=== PATIENT | male | born 1960 | race Caucasian/White ===

== ENCOUNTER 2017-07-05 23:27 | Inpatient (IN) | payer BC ==
[~2017-07-05] VITALS: Ht 170.2 cm; Wt 123.0 kg
[2017-07-05 23:28] VITALS: BP 155/103; PULSE 94; RESP 18; TEMP 97.8; O2SAT 95
[2017-07-06] VITALS (23 sets, daily range): BP systolic 95–143; BP diastolic 48–96; PULSE 69–97; RESP 16–18; TEMP 97.3–99.4; O2SAT 94–100
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
[2017-07-06] MEDS ORDERED: ASPIRIN 81 MG CHEW TAB CHEW ONE (00:15)
[2017-07-06 00:16] LABS: AUTOMATED NEUTROPHIL # 4.7 TH/MM3 (1.8-7.7); BASOPHIL # 0.1 TH/MM3 (0-0.2); BASOPHIL % 0.8 % (0.0-2.0); EOSINOPHIL # 0.3 TH/MM3 (0-0.4); EOSINOPHIL % 3.1 % (0.0-4.0); HEMATOCRIT 47.4 % (39.0-51.0); HEMO FLAGS DIFF FINAL; LYMPH % 34.7 % (9.0-44.0); LYMPHOCYTE # 3.1 TH/MM3 (1.0-4.8); MEAN CELL VOLUME 95.9 FL (80.0-100.0); MEAN CORPUSCULAR HEMOGLOBIN 32.8 PG (27.0-34.0); MEAN CORPUSCULAR HGB CONC 34.2 % (32.0-36.0); MONO % 8.9 % (0.0-8.0); NEUT % 52.5 % (16.0-70.0); PLATELET COUNT 294 TH/MM3 (150-450); RED BLOOD COUNT 4.95 MIL/MM3 (4.50-5.90); WHITE BLOOD COUNT 8.9 TH/MM3 (4.0-11.0)
--- NOTE | 2017-07-06 00:25 | RADRPT ---
EXAM DATE/TIME: 07/06/2017 00:10 [facility] COMPARISON: No previous studies available for comparison. INDICATIONS : Chest pain and short of breath. MEDICAL HISTORY : None. SURGICAL HISTORY : Stent placement. ENCOUNTER: Initial ACUITY: 1 day PAIN SCORE: 4/10 LOCATION: Bilateral chest FINDINGS: A single view of the chest demonstrates the lungs to be symmetrically aerated without evidence of mas s, infiltrate or effusion. Mild pulmonary vascular prominence. Surgical clips overlie the left chest The cardiomediastinal contours are unremarkable. Osseous structures are intact. CONCLUSION: Mild pulmonary vascular congestion. Surgical clips overlie left chest. Some bony hypertrophy of the r ight AC joint. Alan Meléndez MD on July 06, 2017 at 0:23 Board Certified Radiologist. This report was verified electronically.
[2017-07-06 00:30] LABS: APTT (PATIENT) 28.7 SEC (24.3-30.1); PROTHROMBIN TIME - PATIENT 11.3 SEC (9.8-11.6)
[2017-07-06 01:01] LABS: ANION GAP 9 MEQ/L (5-15); BICARBONATE 24.8 MEQ/L (21.0-32.0); BLOOD UREA NITROGEN 13 MG/DL (7-18); CHLORIDE 103 MEQ/L (98-107); CREATINE KINASE 143 U/L (39-308); GLOMERULAR FILTRATION RATE 99 ML/MIN (>89); MAGNESIUM 1.9 MG/DL (1.5-2.5); POTASSIUM 4.1 MEQ/L (3.5-5.1); SODIUM (NA) 137 MEQ/L (136-145)
[2017-07-06 01:14] LABS: CKMB 2.7 NG/ML (0.5-3.6)
[2017-07-06] MEDS ORDERED: HEPARIN SODIUM - IV 10,000 UNITS/10 ML VIAL IV ONE (01:45)
[2017-07-06] MEDS ORDERED: HEPARIN-D5W 25,000 U/250 ML 250 ML IV PRN ×2 (01:45→08:00)
[2017-07-06] MEDS ORDERED: NITROGLYCERIN 2% OINT 1 GM PACKET TOPICAL ONE (02:00)
[2017-07-06] MEDS ORDERED: MORPHINE SULFATE 4 MG/ML INJ IV PUSH PRN (02:15)
[2017-07-06] MEDS ORDERED: ACETAMINOPHEN 500 MG CPLT PO PRN (02:15)
[2017-07-06] MEDS ORDERED: SODIUM CHLORIDE 0.9% FLUSH 10 ML FLUSH IV FLUSH PRN (02:15)
[2017-07-06] MEDS ORDERED: FUROSEMIDE 20 MG/2 ML VIAL IV PUSH ONE (02:15)
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
[2017-07-06] MEDS ORDERED: GLUCAGON 1 MG/ML VIAL OTHER PRN (04:45)
[2017-07-06] MEDS ORDERED: DEXTROSE 50% IN WATER 50 ML VIAL(D50) IV PUSH PRN (04:45)
[2017-07-06 07:31] LABS: HDL CHOLESTEROL 51.6 MG/DL (40.0-60.0)
[2017-07-06] MEDS: INSULIN ASPART SUPPLEMENTAL SCALE SQ SCH ×4 (08:00→21:33)
[2017-07-06] MEDS: NITROGLYCERIN 2% OINT 1 GM PACKET TOP SCH ×3 (08:00→18:00)
[2017-07-06] MEDS: SODIUM CHLORIDE 0.9% FLUSH 10 ML FLUSH IV FLUSH SCH ×2 (09:00→21:32)
[2017-07-06 10:02] LABS: APTT (PATIENT) 29.1 SEC (24.3-30.1); HEMATOCRIT 44.2 % (39.0-51.0); MEAN CELL VOLUME 97.2 FL (80.0-100.0); MEAN CORPUSCULAR HEMOGLOBIN 33.6 PG (27.0-34.0); MEAN CORPUSCULAR HGB CONC 34.6 % (32.0-36.0); PLATELET COUNT 280 TH/MM3 (150-450); RED BLOOD COUNT 4.54 MIL/MM3 (4.50-5.90); RED CELL DISTRIBUTION WIDTH 12.9 % (11.6-17.2); REVIEW FLAG FINAL; WHITE BLOOD COUNT 8.7 TH/MM3 (4.0-11.0)
--- NOTE | 2017-07-06 10:58 | HHI.PR ---
Subjective Remarks Follow-up non-ST elevation NC 07/06/17-patient seen and examined and currently he is free of chest pain Objective Vitals Vital Signs Date Time Temp Pulse Resp B/P (MAP) Pulse Ox O2 Delivery O2 Flow Rate FiO2 07/06/17 09:00 77 07/06/17 08:00 74 07/06/17 07:00 98.4 74 16 136/85 (102) 97 07/06/17 07:00 72 07/06/17 06:00 74 07/06/17 05:00 73 07/06/17 04:00 73 07/06/17 03:46 07/06/17 03:40 98.6 71 18 139/96 (110) 96 07/06/17 03:40 71 07/06/17 02:19 71 18 143/93 (110) 97 Nasal Cannula 2.00 07/06/17 02:14 73 18 143/93 (110) 100 Nasal Cannula 2.00 07/06/17 00:23 98 Nasal Cannula 2.00 07/06/17 00:23 97 Nasal Cannula 2.00 07/06/17 00:23 25 100 Nasal Cannula 2.00 07/05/17 23:28 97.8 94 18 155/103 (120) 95 Room Air I/O 07/05/17 07/05/17 07/05/17 07/06/17 07/06/17 07/06/17 07:00 15:00 23:00 07:00 15:00 23:00 Intake Total 40 ml Output Total 400 ml Balance -360 ml Intake Oral 0 ml IV Total 40 ml Output Urine Total 400 ml # Bowel Movements 0 Result Diagram: 07/06/17 0940 07/06/17 0008 Imaging Last Impressions Chest X-Ray 07/05/17 3414 Signed Impressions: Service Date/Time: Thursday, July 06, 2017 00:10 - CONCLUSION: Mild pulmonary vascular congestion. Surgical clips overlie left chest. Some bony hypertrophy of the right AC joint. Alan Meléndez MD Objective Remarks GENERAL: NAD SKIN: Warm and dry. HEAD: Normocephalic. EYES: No scleral icterus. No injection or drainage. NECK: Supple, trachea midline. No JVD or lymphadenopathy. CARDIOVASCULAR: Regular rate and rhythm without murmurs, gallops, or rubs. RESPIRATORY: Breath sounds equal bilaterally. No accessory muscle use. GASTROINTESTINAL: Abdomen soft, non-tender, nondistended. MUSCULOSKELETAL: No cyanosis, or edema. BACK: Nontender without obvious deformity. No CVA tenderness. A/P Problem List: (1) Non-ST elevation myocardial infarction (NSTEMI) ICD Code: I21.4 - Non-ST elevation (NSTEMI) myocardial infarction Status: Acute (2) Hypertension ICD Code: I10 - Essential (primary) hypertension Status: Acute (3) Diabetes mellitus ICD Code: E11.9 - Type 2 diabetes mellitus without complications Status: Acute (4) Tobacco use ICD Code: Z72.0 - Tobacco use Status: Acute Assessment and Plan 57-year-old man with 1. NSTEMI Continue with ACS rule out including serial troponin/EKG Currently on Heparin drip, Nitropaste, beta christiane, statin, aspirin Cardiology consulted for possible evaluation for left heart catheterization 2. Shortness of breath Likely secondary to NSTEMI Chest x-ray significant for mild pulmonary vascular congestion Status post IV Lasix 1 Supplemental oxygen 3. Diabetes mellitus Not currently on any medication A1c pending Continue with SSI 4. Hypertension Start Coreg twice a day 5. Hyperlipidemia LDL 111 Start Lipitor at bedtime Aamir Bentley MD Jul 06, 2017 10:58
--- NOTE | 2017-07-06 14:05 | EKG ---
Date Performed: 07/06/2017 Time Performed: 05:53:16 PTAGE: 57 years EKG: Sinus rhythm Lateral T wave changes may be due to myocardial ischemia Abnormal ECG PREVIOUS TRACING : 07/06/2017 00.17 Compared to prior tracing no significant change DOCTOR: Dayne Chapa Interpretating Date/Time 07/06/2017 14:01:55
--- NOTE | 2017-07-06 14:10 | EKG ---
Date Performed: 07/06/2017 Time Performed: 00:17:13 PTAGE: 57 years EKG: Sinus rhythm SEPTAL MYOCARDIAL INFARCTION ABNORMAL ECG NO PREVIOUS TRACING DOCTOR: Dayne Chapa Interpretating Date/Time 07/06/2017 14:05:19
[2017-07-06] MEDS ORDERED: DIAZEPAM 10 MG TAB PO SCH (17:00)
[2017-07-06] MEDS: SODIUM CHLOR 0.9% 1000 ML INJ 1,000 ML IV SCH (17:00)
[2017-07-06] MEDS ORDERED: diphenhydrAMINE HCL 50 MG CAP PO SCH (17:00)
--- NOTE | 2017-07-06 17:29 | MB ---
cc: AI BIRD DATE OF CONSULTATION 07/06/17 REASON FOR CONSULTATION Unstable angina. HISTORY OF PRESENT ILLNESS The patient is a 57-year-old white male with a history of hypertension, hyperlipidemia, diabetes, coronary artery disease status post myocardial infarction and coronary stent placement 2010 in [place] who presented to the hospital with chest pain. On the day of admission, while doing minimal to mild exertion, he developed severe substernal chest discomfort described as "pressure" associated with severe shortness of breath. The episode lasted about 30 minutes but recurred a short time later, again associated with severe shortness of breath. He finally decided to go to the emergency room for further evaluation and treatment. The second episode of chest discomfort also lasted about 30-40 minutes. He denies pleurisy, dizziness, syncope, near-syncope, palpitations, pedal edema, paroxysmal nocturnal dyspnea. PAST MEDICAL HISTORY As above. No other details currently available. PAST SURGICAL HISTORY 1. Appendectomy 2. Benign tumor removed from the shoulder. MEDICATIONS At home none. Here in hospital 1. Aspirin 325 mg p.o. daily. 2. Carvedilol 3.125 mg p.o. b.i.d. 3. Atorvastatin 10 mg p.o. q.h.s. 4. Nitro paste 1 inch q.6 h. 5. Heparin drip. ALLERGIES NO KNOWN DRUG ALLERGIES. FAMILY HISTORY Noncontributory. There is no significant family history of early myocardial infarction. SOCIAL HISTORY The patient smokes about a pack of cigarettes per day. He denies drug or alcohol abuse. REVIEW OF SYSTEMS As in the history of present illness, otherwise, negative or noncontributory. He also denies headache, visual changes, numbness, abdominal pain, melena, dyspepsia, bright red blood per rectum. PHYSICAL EXAMINATION VITAL SIGNS: Blood pressure 132/74 with a pulse of 97, respirations 16. GENERAL: He is a well-developed, well-nourished white male in no acute distress HEENT: Jugular venous pressure is very hard to assess. Carotid pulses are 2+ bilaterally and without bruits. CHEST: Examination of the chest reveals clear lung medina. CARDIAC: He has a regular rhythm and rate without S3-S4 or murmur. ABDOMEN: He has a soft, obese, nontender abdomen. Bowel sounds are present. There is no definite hepatosplenomegaly. EXTREMITIES: No clubbing, cyanosis or edema. Peripheral pulses are normal throughout. LABORATORY DATA Normal CBC. Normal basic metabolic profile except for glucose 187. Troponin 0.39, CK 143, total cholesterol 209, LDL 111, HDL 52, triglycerides 233. IMAGING STUDIES Chest x-ray shows mild pulmonary vascular congestion. CARDIOLOGY STUDIES EKG shows sinus rhythm, septal infarct age undetermined. IMPRESSION Symptoms most suggestive of unstable angina in this 57-year-old white male with a history of known coronary artery disease status post myocardial infarction and coronary stenting several years ago, history of hypertension, diabetes, hyperlipidemia. His chest pain symptoms on the day of admission clearly are suggestive of angina in an unstable pattern, occurring with minimal exertion. Troponin levels are also slightly abnormal. EKGs overall show non-diagnostic lateral T-wave changes. He has been chest pain free since coming into hospital. Chest x-ray also suggests the possibility of slight to mild congestive heart failure. Echocardiogram is pending. RECOMMENDATIONS 1. Cardiac catheterization tomorrow. 2. Continue statin therapy. 3. Continue beta christiane therapy and add an SARA inhibitor. 4. Continue daily aspirin and heparin drip. MD DIRK Osullivan/ /5:02 PM /5:09 PM MTDD
[2017-07-06 17:48] LABS: HEMOGLOBIN A1a 1.3 %; HEMOGLOBIN A1b 1.2 %; HEMOGLOBIN Ao 80.3 %; HEMOGLOBIN F 1.5 %; HEMOGLOBIN LA1C 2.4 %; HEMOGLOBIN P3 4.2 %
[2017-07-06] MEDS: ENALAPRIL MALEATE 2.5 MG TAB PO SCH (21:33)
[2017-07-06] MEDS: CARVEDILOL 3.125 MG TAB PO SCH (21:33)
[2017-07-06] MEDS: ATORVASTATIN 10 MG TAB PO SCH (21:33)
[2017-07-07] VITALS (24 sets, daily range): BP systolic 116–137; BP diastolic 72–98; PULSE 63–92; RESP 18–20; TEMP 97.9–99.1; O2SAT 94–100
[2017-07-07 00:41] LABS: APTT (PATIENT) 29.2 SEC (24.3-30.1)
[2017-07-07] MEDS: SODIUM CHLOR 0.9% 1000 ML INJ 1,000 ML IV SCH (03:00)
[2017-07-07] MEDS: NITROGLYCERIN 2% OINT 1 GM PACKET TOP SCH ×3 (06:00→12:00)
[2017-07-07 06:23] LABS: AUTOMATED NEUTROPHIL # 4.8 TH/MM3 (1.8-7.7); BASOPHIL # 0.1 TH/MM3 (0-0.2); BASOPHIL % 0.7 % (0.0-2.0); EOSINOPHIL # 0.4 TH/MM3 (0-0.4); HEMATOCRIT 44.1 % (39.0-51.0); HEMO FLAGS DIFF FINAL; LYMPH % 36.1 % (9.0-44.0); LYMPHOCYTE # 3.4 TH/MM3 (1.0-4.8); MEAN CELL VOLUME 96.9 FL (80.0-100.0); MEAN CORPUSCULAR HEMOGLOBIN 33.1 PG (27.0-34.0); MEAN CORPUSCULAR HGB CONC 34.1 % (32.0-36.0); MONO % 8.7 % (0.0-8.0); NEUT % 50.5 % (16.0-70.0); PLATELET COUNT 277 TH/MM3 (150-450); RED BLOOD COUNT 4.55 MIL/MM3 (4.50-5.90); RED CELL DISTRIBUTION WIDTH 12.6 % (11.6-17.2); WHITE BLOOD COUNT 9.5 TH/MM3 (4.0-11.0)
[2017-07-07 06:29] LABS: APTT (PATIENT) 30.2 SEC (24.3-30.1)
[2017-07-07 06:50] LABS: BICARBONATE 28.9 MEQ/L (21.0-32.0)
[2017-07-07] MEDS: INSULIN ASPART SUPPLEMENTAL SCALE SQ SCH ×4 (08:00→21:00)
[2017-07-07] MEDS: ENALAPRIL MALEATE 2.5 MG TAB PO SCH ×2 (08:31→21:46)
[2017-07-07] MEDS: ASPIRIN 325 MG TAB PO SCH (08:31)
[2017-07-07] MEDS: SODIUM CHLORIDE 0.9% FLUSH 10 ML FLUSH IV FLUSH SCH ×2 (08:32→21:46)
[2017-07-07] MEDS: CARVEDILOL 3.125 MG TAB PO SCH ×2 (08:32→21:46)
--- NOTE | 2017-07-07 10:35 | HHI.PR ---
Subjective Remarks 57-year-old male with a past medical history significant for hypertension and type 2 diabetes mellitus who presents with increasing shortness of breath and chest tightness 1 day. The patient reports that he was having shortness of breath and chest pressure when he woke up this morning. His shortness of breath was relieved with lying down however when he woke up to take a shower to go to work, the pain and shortness of breath returned. He was previously stented in 2010 in [place], however has not been on any medications in quite some time. He carries a diagnosis of hypertension and diabetes however does not take any medications because he cannot afford these. He last saw PCP approximately 3 years ago. Troponin on admission was 0.39. EKG with no ST segment elevations or depressions. Chest x-ray significant for pulmonary vascular congestion. 07/06/17-patient seen and examined and currently he is free of chest pain 07-07 NO CHEST PAIN DW RN AND PT TO HAVE CARDIAC CATH LATER TODAY AM LABS Objective Vitals Vital Signs Date Time Temp Pulse Resp B/P (MAP) Pulse Ox O2 Delivery O2 Flow Rate FiO2 07/07/17 09:00 68 07/07/17 08:00 66 07/07/17 07:00 68 07/07/17 07:00 98.3 75 20 126/88 (101) 96 07/07/17 06:00 72 07/07/17 05:00 78 07/07/17 04:00 72 07/07/17 03:00 76 07/07/17 03:00 99.1 76 18 120/73 (89) 96 07/07/17 02:00 74 07/07/17 01:00 72 07/07/17 00:00 72 07/06/17 23:00 77 07/06/17 23:00 99.4 77 18 95/48 (64) 96 07/06/17 22:00 84 07/06/17 21:00 84 07/06/17 20:00 99.2 79 18 127/84 (98) 94 07/06/17 20:00 80 07/06/17 19:00 82 07/06/17 18:06 96 07/06/17 16:00 97 07/06/17 15:00 87 07/06/17 15:00 97.3 87 16 132/74 (93) 96 07/06/17 14:05 84 07/06/17 13:00 84 07/06/17 12:00 84 07/06/17 11:00 69 07/06/17 11:00 98.4 76 18 132/79 (96) 96 I/O 07/06/17 07/06/17 07/06/17 07/07/17 07/07/17 07/07/17 07:00 15:00 23:00 07:00 15:00 23:00 Intake Total 40 ml 682 ml 370 ml Output Total 400 ml 850 ml 1625 ml Balance -360 ml -168 ml -1255 ml Intake Oral 0 ml 640 ml 240 ml IV Total 40 ml 42 ml 130 ml Output Urine Total 400 ml 850 ml 1625 ml # Bowel Movements 0 0 1 Result Diagram: 07/07/1760407/07/17604 Other Results Laboratory Tests Test 07/06/17 00:08 07/06/17 06:03 07/06/17 09:40 07/06/17 13:30 White Blood Count 8.9 TH/MM3 8.7 TH/MM3 Red Blood Count 4.95 MIL/MM3 4.54 MIL/MM3 Hemoglobin 16.2 GM/DL 15.3 GM/DL Hematocrit 47.4 % 44.2 % Mean Corpuscular Volume 95.9 FL 97.2 FL Mean Corpuscular Hemoglobin 32.8 PG 33.6 PG Mean Corpuscular Hemoglobin Concent 34.2 % 34.6 % Red Cell Distribution Width 13.0 % 12.9 % Platelet Count 294 TH/MM3 280 TH/MM3 Mean Platelet Volume 7.3 FL 7.4 FL Neutrophils (%) (Auto) 52.5 % Lymphocytes (%) (Auto) 34.7 % Monocytes (%) (Auto) 8.9 % Eosinophils (%) (Auto) 3.1 % Basophils (%) (Auto) 0.8 % Neutrophils # (Auto) 4.7 TH/MM3 Lymphocytes # (Auto) 3.1 TH/MM3 Monocytes # (Auto) 0.8 TH/MM3 Eosinophils # (Auto) 0.3 TH/MM3 Basophils # (Auto) 0.1 TH/MM3 CBC Comment DIFF FINAL Differential Comment Prothrombin Time 11.3 SEC Prothromb Time International Ratio 1.0 RATIO Activated Partial Thromboplast Time 28.7 SEC 29.1 SEC Blood Urea Nitrogen 13 MG/DL Creatinine 0.81 MG/DL Random Glucose 187 MG/DL Calcium Level 8.2 MG/DL Magnesium Level 1.9 MG/DL Sodium Level 137 MEQ/L Potassium Level 4.1 MEQ/L Chloride Level 103 MEQ/L Carbon Dioxide Level 24.8 MEQ/L Anion Gap 9 MEQ/L Estimat Glomerular Filtration Rate 99 ML/MIN Total Creatine Kinase 143 U/L 103 U/L 87 U/L Creatine Kinase MB 2.7 NG/ML Troponin I 0.39 NG/ML 0.39 NG/ML 0.33 NG/ML B-Type Natriuretic Peptide 95 PG/ML Triglycerides Level 233 MG/DL Cholesterol Level 209 MG/DL LDL Cholesterol 111 MG/DL HDL Cholesterol 51.6 MG/DL Cholesterol/HDL Ratio 4.05 RATIO Hemoglobin A1c 8.8 % Test 07/06/17 15:37 07/06/17 23:48 07/07/17 06:05 Activated Partial Thromboplast Time 28.0 SEC 29.2 SEC 30.2 SEC White Blood Count 9.5 TH/MM3 Red Blood Count 4.55 MIL/MM3 Hemoglobin 15.1 GM/DL Hematocrit 44.1 % Mean Corpuscular Volume 96.9 FL Mean Corpuscular Hemoglobin 33.1 PG Mean Corpuscular Hemoglobin Concent 34.1 % Red Cell Distribution Width 12.6 % Platelet Count 277 TH/MM3 Mean Platelet Volume 7.3 FL Neutrophils (%) (Auto) 50.5 % Lymphocytes (%) (Auto) 36.1 % Monocytes (%) (Auto) 8.7 % Eosinophils (%) (Auto) 4.0 % Basophils (%) (Auto) 0.7 % Neutrophils # (Auto) 4.8 TH/MM3 Lymphocytes # (Auto) 3.4 TH/MM3 Monocytes # (Auto) 0.8 TH/MM3 Eosinophils # (Auto) 0.4 TH/MM3 Basophils # (Auto) 0.1 TH/MM3 CBC Comment DIFF FINAL Differential Comment Blood Urea Nitrogen 15 MG/DL Creatinine 0.96 MG/DL Random Glucose 193 MG/DL Calcium Level 8.3 MG/DL Sodium Level 136 MEQ/L Potassium Level 4.0 MEQ/L Chloride Level 102 MEQ/L Carbon Dioxide Level 28.9 MEQ/L Anion Gap 5 MEQ/L Estimat Glomerular Filtration Rate 81 ML/MIN Imaging Last Impressions Chest X-Ray 07/05/17 [id number] Signed Impressions: Service Date/Time: Thursday, July 06, 2017 00:10 - CONCLUSION: Mild pulmonary vascular congestion. Surgical clips overlie left chest. Some bony hypertrophy of the right AC joint. Alan Meléndez MD Objective Remarks GENERAL: Awake alert oriented 3 --talkative and cooperative SKIN: Warm and dry. HEAD: Atraumatic. Normocephalic. EYES: Pupils equal and round. No scleral icterus. No injection or drainage. Extraocular muscles intact ENT: No nasal bleeding or discharge. Mucous membranes pink and moist. Tongue is midline NECK: Trachea midline. No JVD. Neck is supple CARDIOVASCULAR: Regular rate and rhythm. S1-S2 no S3-S4 no heave or thrill or rub or gallop RESPIRATORY: No accessory muscle use. Clear to auscultation. Breath sounds equal bilaterally. GASTROINTESTINAL: Abdomen soft, non-tender, nondistended. Hepatic and splenic margins not palpable. Obese MUSCULOSKELETAL: Extremities without clubbing, cyanosis, or edema. No obvious deformities. NEUROLOGICAL: Awake and alert. No obvious cranial nerve deficits. Motor grossly within normal limits. Five out of 5 muscle strength in the arms and legs. Normal speech. PSYCHIATRIC: Appropriate mood and affect; insight and judgment normal. Medications and IVs Current Medications Aspirin (Aspirin Chew) 324 mg ONCE ONCE CHEW Last administered on 07/06/17 00:22; Start 07/06/17 at 00:15; Stop 07/06/17 at 00:17; Status DC Heparin Sodium (Porcine) (Heparin Inj) 4,000 units ONCE ONCE IV Last administered on 07/06/17 01:45; Start 07/06/17 at 01:45; Stop 07/06/17 at 01 :46; Status DC Heparin Sodium/ Dextrose 250 ml @ 10 mls/hr TITRATE PRN IV Coagulation Management Last administered on 07/06/17 02:12; Start 07/06/17 at 01:45; Stop 07/06/17 at 07:52; Status DC Nitroglycerin (Nitroglycerin 2% Oint) 1 inch ONCE ONCE TOPICAL Last administered on 07/06/17 02:32; Start 07/06/17 at 02:00; Stop 07/06/17 at 02 :01; Status DC Furosemide (Lasix Inj) 20 mg ONCE ONCE IV PUSH Last administered on 02:32; Start 07/06/17 at 02:15; Stop 07/06/17 at 02:16; Status DC Sodium Chloride (NS Flush) 2 ml BID IV FLUSH Last administered on 07/07/17 08 :32; Start 07/06/17 at 09:00 Sodium Chloride (NS Flush) 2 ml UNSCH PRN IV FLUSH FLUSH AFTER USING IV ACCESS ; Start 07/06/17 at 02:15 Aspirin (Aspirin) 325 mg DAILY PO Last administered on 07/07/17 08:31; Start 07/07/17 at 09:00 Nitroglycerin (Nitroglycerin 2% Oint) 1 inch Q6HR TOP ; Start 07/06/17 at 08:00 Acetaminophen (Tylenol) 500 mg Q4H PRN PO HEADACHE; Start 07/06/17 at 02:15 Morphine Sulfate (Morphine Inj) 2 mg Q3HR PRN IV PUSH PAIN SCALE 6 TO 10; Start 07/06/17 at 02:15 Dextrose (D50w (Vial) Inj) 50 ml UNSCH PRN IV PUSH HYPOGLYCEMIA-SEE COMMENTS; Start 07/06/17 at 04:45 Glucagon (Glucagon Inj) 1 mg UNSCH PRN OTHER HYPOGLYCEMIA-SEE COMMENTS; Start 07/06/17 at 04:45 Insulin Aspart (NovoLOG SUPPLEMENTAL SCALE) 1 ACHS SLIDING SCALE SQ Last administered on 07/06/17 21:33; Start 07/06/17 at 08:00 Heparin Sodium/ Dextrose 250 ml @ 10 mls/hr TITRATE PRN IV Coagulation Management Last administered on 07/07/17 03:58; Start 07/06/17 at 08:00 Carvedilol (Coreg) 3.125 mg Q12HR PO Last administered on 07/07/17 08:32; Start 07/06/17 at 21:00 Atorvastatin Calcium (Lipitor) 10 mg HS PO Last administered on 07/06/17 21: 33; Start 07/06/17 at 21:00 Enalapril Maleate (Vasotec) 2.5 mg BID PO Last administered on 07/07/17 08:31 ; Start 07/06/17 at 21:00 Sodium Chloride 1,000 ml @ 100 mls/hr Q10H IV ; Start 07/06/17 at 17:00; Stop 07/11/17 at 16:59 Diphenhydramine HCl (Benadryl) 50 mg METROLOGY SPECIALIST PO ; Start 07/06/17 at 17:00; Stop 07/10/17 at 16:59 Diazepam (Valium) 10 mg METROLOGY SPECIALIST PO ; Start 07/06/17 at 17:00; Stop 07/10/17 at 16:59 A/P Problem List: (1) Non-ST elevation myocardial infarction (NSTEMI) ICD Code: I21.4 - Non-ST elevation (NSTEMI) myocardial infarction Status: Acute (2) Hypertension ICD Code: I10 - Essential (primary) hypertension Status: Acute (3) Diabetes mellitus ICD Code: E11.9 - Type 2 diabetes mellitus without complications Status: Acute (4) Tobacco use ICD Code: Z72.0 - Tobacco use Status: Acute Assessment and Plan Continue with ACS rule out including serial troponin/EKG Currently on Heparin drip, Nitropaste, beta christiane, statin, aspirin Cardiology consulted for possible evaluation for left heart catheterization later today Currently chest pain-free 2. Shortness of breath Likely secondary to NSTEMI Chest x-ray significant for mild pulmonary vascular congestion Status post IV Lasix 1 Supplemental oxygen 3. Diabetes mellitus Not currently on any medication A1c pending Continue with SSI 4. Hypertension Start Coreg twice a day 5. Hyperlipidemia LDL 111 Start Lipitor at bedtime Malignant noncompliance since patient has not seen a physician in many years even though he has insurance Discharge Planning Cardiac catheterization later today further recommendations pending Porter Sewell DO Jul 07, 2017 10:35
[2017-07-07] MEDS ORDERED: HEPARIN-NS/PF INJ 500 ML ONE (14:47)
[2017-07-07] MEDS ORDERED: MIDAZOLAM HCL 2 MG/2 ML VIAL ONE (14:47)
[2017-07-07] MEDS ORDERED: VERAPAMIL HCL 5 MG/2 ML VIAL ONE (14:47)
[2017-07-07] MEDS ORDERED: HEPARIN SODIUM - IV 10,000 UNITS/10 ML VIAL ONE (14:48)
[2017-07-07] MEDS ORDERED: NITROGLYCERIN INJ 5 ML ONE (14:48)
--- NOTE | 2017-07-07 15:32 | CATHPROC ---
[facility] HIS Report Study Information Study Number Admission Scheduled Start Study Start [id number] Jul 06 2017 1:53AM 07/06/2017 Jul 07 2017 2:27PM [place] [facility] Cardiac Catheterization Admit Source Facility Department Other [facility] - [employer] [facility] Physician and Clinical Staff Initial Carter Whitt Bank Runner Kaleigh Rodriguez,RN Additional Carter Whitt Recorder Nae Gill,RT(R) Scrub UmairEmily marie,RT(R) (BS) Procedures Performed Procedure Location (Site) Vessel Name Angiogram LV LV Ventricle Coronary Angiograms LCA Left Coronary Coronary Angiograms RCA Right Coronary L Heart Cath Equipment Time Laborer [employer] Description Size Mfg Part Number Used/Scraped TRANSDUCER, TRUWAVE [id number] 14:51 WANG DONAHUE * Used W/STOCKCOCK *[id number] *[id number] *[id number] 14:51 MALLINCKRODT SYRINGE, ANGIOMAT 150ML 150ML *[id number] Used 2S MEDICAL CONCEPT DRAPE, RADIAL FEMORAL FULL 14:51 * [id number] *[id number] Used DEVELOPMENT BODY [id number] 14:51 [employer] PACK, CCL CUSTOM * Used *[id number] 14:51 [employer] SUPPORT, ARTERIAL ADULT 35872 *[id number] Used [id number] 14:51 [employer] PACER PEN, SKIN DUAL W/ RULER * Used *[id number] BAND, RADIAL COMPRESSION TR [id number] 15:[address] [employer] 29CM Used LARGE 29 *[id number] SHEATH, FR6 RADIAL PRELUDE 14:51 [employer] FR 6 [id number] Used EASE 11CM [id number] 14:51 [employer] WIRE, EXCHANGE 260CM 3MMJ 260CM Used *[id number] 14:51 [employer] MANIFOLD, 4 PORT * Used *[id number] 15:22 [employer] TUBING, HIGH PRESSURE 20" 20" Used *[id number] 14:51 [employer] OMNIPAQUE, 350 MG, 150ML 150ML [id number] Used 15:15 [employer] OMNIPAQUE, 350 MG, 50ML 50ML [id number] Used [id number] 14:51 [employer],WARM AIR CCL * Used *[id number] CATHETER, FR5 OPTITORQUE [id number] 15:08 TERQwbcg MEDICAL FR 5 Used RADIAL TIG 4.0 *[id number] History: Current Medications Medication Dosage/Unit Route Frequency Last Date/Time Taken VASOTEC LIPITOR Beta Harmony ASA History: Allergies Allergy Reaction NKDA History: Risk Factors Family History of Hypertension Previous [place] Previous Heart Failure Premature CAD Yes No No No Prior Valve Prior PCI Prior PCIDate Prior CABG Surgery No Yes 08/23/2010 No Cerebrovascular Peripheral Artery Chronic Lung On Dialysis Diabetes Diabetes Therapy Disease Disease Disease No No No No Yes Oral History: Stress Tests Stress or Imaging Studies Performed No History: Other Disease Selection Items CAD History: Other Current Smoker Method Packs a Day Years Used Pack Years Yes Cigarettes 1 43 43 Labs Hgb (g/dl) Hct (%) WBC (l/cumm) Platelets (thousands) 11.60-17.00 35.00-51.00 4.00-11.00 150.00-450.00 15.1 44.1 9.5 277 Glucose (mg/dl) BUN (mg/dl) Creatinine (mg/dl) BUN:Creatinine (1:x) 74.00-106.00 7.00-18.00 0.50-1.30 10.00-20.00 193 15 0.9 16.7 Na (meq/l) K (meq/l) 136.00-145.00 3.50-5.10 136 4 INR (PTT:PT) 0.90-1.10 1 CPK-MB (ng/ML) 0.50-3.60 Not Drawn Medication Medication Total Dose (Bolus/Oral) Medication Total Dosage/Unit 1% XYLOCAINE 20 mL RADIAL COCKTAIL 5 mL (Bolus) VERSED 2 mg Medications (Bolus/Oral) Medication Time Given Dosage/Unit Administered By Reason VERSED 07/07/2017 3:00:00 PM 2 mg Kaleigh Rodriguez 2 mg VERSED given in lab by Kaleigh Rodriguez, RN in Left Forearm via Peripheral IV. Ordered by Carter Mars. 1% XYLOCAINE 07/07/2017 3:00:11 PM 20 mL Carter Mars 20 mL 1% XYLOCAINE given in lab by Carter Mars in Right Radial via Subcutaneous. Ntg 200mcg Verapamil 2.5mg Heparin RADIAL COCKTAIL 07/07/2017 3:06:31 PM 5 mL (Bolus) Carter Mars 2500U 5 mL (Bolus) RADIAL COCKTAIL given in lab by Carter Mars in Right Radial via Radial. Using [Solution Name]. Reason: Ntg 200mcg Verapamil 2.5mg Heparin 2500U. Medication (Drip) Medication Time Given Dosage/Unit Concentration/Unit Diluent (ml) Solution IV Solutions 07/07/2017 2:51:40 PM 50 mL (IV) NaCl .9 IV Solutions given in lab by Kaleigh Rodriguez RN in Left Forearm via Peripheral IV. Pump/Drip Flow us ing NaCl .9. Ordered by Carter Mars. Initial Case Assessment Cardiovascular HR Rhythm NIBP Chest Pain 72 SR 127/96 0 Edema Present Skin color Skin None Normal Warm Circulatory - Right Pulses Dorsalis Pedis Femoral Radial 2 2 2 Scale (0,1,2,3,4,d) Scale (0,1,2,3,4,d) Neurological State Oriented to time-place- Alert Moves all extremities person Respiration - General Respiration Rate SpO2 (%) O2 (lpm) (B/min) 19 96 2 Final Case Assessment Cardiovascular HR Rhythm NIBP Chest Pain 75 SR 120/78 0 Edema Present Skin color Skin None Normal Warm Circulatory - Right Pulses Dorsalis Pedis Femoral Radial 2 2 2 Scale (0,1,2,3,4,d) Scale (0,1,2,3,4,d) Neurological State Oriented to time-place- Alert Moves all extremities person Respiration - General Respiration Rate SpO2 (%) O2 (lpm) (B/min) 19 96 2 Chronological Log Time Study Chronological Log 14:37:24 Patient arrived via Bed. 14:40:31 Patient Name, D.O.B, / Armband Verified By R.N. 14:40:34 Consent signed by the physician and the patient and verified by the [employer] staff. 14:40:36 Pre-op and post- op instructions given; patient acknowledges understanding of instructions. 14:50:43 Immediate Presedation assesment performed by physician. 14:50:49 Patient has been NPO for More than 6Hrs. 14:50:50 Skin Breakdown- none 14:51:00 A # 18 IV was noted in the Antecubital (right). Grade = 0 14:51:00 A # 18 IV was noted in the Forearm (left). Grade = 0 IV Solutions given in lab by Kaleigh Rodriguez, BRENDAN in Left Forearm via Peripheral IV. Pump/Drip F low using NaCl .9. 14:51:40 Ordered by Carter Mars. 14:52:07 Pressure channel 1 zeroed. 14:52:19 History and physical on the chart or being dictated. Assessment: Initial Case, HR=72 BPM, Rhythm=SR, LDGR=566/96 mmhg, Chest Pain=0, Edema=None, Col or=Normal, Skin = Warm 14:52:21 Right Pulses: [place] Ped=2, Femoral=2, Radial=2 Neurological: State=Alert, Ox3, AUGUST Respiration: Resp=19 B/min, SpO2=96 %, O2=2 lpm Vitals capture started with the following parameters, Patient=Adult, Interval=5 min, Initial Pr msrmxt=827 mmHg, 14:52:35 Deflation Rate=5 mmHg, Cuff placed on Left Arm 14:53:10 HR=71 bpm, OJVU=439/96 mmhg, SpO2=96.0 %, Resp=18 B/min, Pain=0, Daysi=10, Hopper=2 14:54:05 MD arrived. 14:58:07 HR=71 bpm, QAJE=167/95 mmhg, SpO2=96.0 %, Resp=16 B/min Time Out. Correct patient, correct procedure, correct physician, power injector loaded, or not loaded with contrast with 14:59:13 surgical team present. Time Out Concurred by MD and individual staff in procedure. 15:00:00 2 mg VERSED given in lab by Kaleigh Rodriguez, BRENDAN in Left Forearm via Peripheral IV. Ordered by Carter Mars. 15:00:08 Case Start 15:00:11 20 mL 1% XYLOCAINE given in lab by Carter Mars in Right Radial via Subcutaneous. 15:03:10 HR=75 bpm, GYDC=542/89 mmhg, SpO2=95.0 %, Resp=19 B/min 15:04:35 Access site was Right Radial Artery. A SHEATH, FR6 RADIAL PRELUDE EASE 11CM FR 6 was advanced into the Radial (right) using the Perc utaneous 15:04:50 technique. 5 mL (Bolus) RADIAL COCKTAIL given in lab by Carter Mars in Right Radial via Radial. Using [So lution Name]. Reason: 15:06:31 Ntg 200mcg Verapamil 2.5mg Heparin 2500U. 15:07:01 Reference ECG taken A CATHETER, FR5 OPTITORQUE RADIAL TIG 4.0 FR 5 was advanced over a wire. OMNIPAQUE, 350 MG, 150 ML 150ML 15:07:33 was used for injections. 15:08:11 HR=76 bpm, ZNZZ=028/80 mmhg, SpO2=92 %, Resp=21 B/min 15:08:37 The LCA was injected and visualized at various angles. OMNIPAQUE, 350 MG, 150ML 150ML used . Recorded Pressure: Ao, HR=76, Condition=Condition 1 15:08:57 (Aorta) Ao 115/85/99 15:11:16 The RCA was injected and visualized at various angles. OMNIPAQUE, 350 MG, 150ML 150ML used . After removing the current catheter a JL 3.5 INFINITI CATHETER FR 6 was advanced over a WIRE, E XCHANGE 260CM 15:12:27 3MMJ 260CM. 15:13:10 HR=83 bpm, JTCJ=093/77 mmhg, SpO2=91.0 %, Resp=18 B/min After removing the current catheter a PIGTAIL STR INFINITI CATHETER FR 6 was advanced over a WI RE, EXCHANGE 15:16:41 260CM 3MMJ 260CM. 15:18:09 HR=86 bpm, VHGT=300/85 mmhg, SpO2=95.0 %, Resp=17 B/min Recorded Pressure: LV, HR=78, Condition=Condition 1 15:18:22 (Left Ventricle) LV 119/23/35 15:20:30 The LV was injected at 12 cc/sec for a total of 42. OMNIPAQUE, 350 MG, 50ML 50ML used. Recorded Pressure: LV, Ao, HR=81, Condition=Condition 1 15:20:48 (Left Ventricle) LV 123/24/42, (Aorta) Ao 113/79/95 15:21:03 Catheter was removed 15:21:06 Case End Radial Compression Device Used. 10 mLs of air placed in BAND, RADIAL COMPRESSION TR LARGE 29 2 9CM. Affected 15:21:54 hand 96 % O2 saturation. 15:22:43 No case complications noted. 15:22:46 Cine recording checked. 15:22:47 Bedside Report will be given. 15:22:49 Contrast Scanned 15::52 A Left Heart Cath was performed. Assessment: Final Case, HR=75 BPM, Rhythm=SR, OWIC=796/78 mmhg, Chest Pain=0, Edema=None, [place] r=Normal, Skin = Warm 15:23:02 Right Pulses: Israel Ped=2, Femoral=2, Radial=2 Neurological: State=Alert, Ox3, AUGUST Respiration: Resp=19 B/min, SpO2=96 %, O2=2 lpm 15:23:10 HR=76 bpm, CYHT=127/78 mmhg, SpO2=96.0 %, Resp=18 B/min 15:26:52 Vitals capture stopped. 15:33:00 Patient moved to stretcher End Study - Contrast Media Used In Study Contrast Total Opened (mL) Total Used (mL) Total Wasted (mL) Omnipaque 115 115 0 End Study - Maximum Contrast Load Max Contrast Load (mL) 688.9 End Study - Radiation Exposure Fluoro Time (minutes) 3.7 End Study - Patient Disposition Complications Transferred To Interventional Outcome No Telemetry Bed No attempt made
--- NOTE | 2017-07-07 15:37 | PD.CARD.PN ---
Subjective Subjective Remarks Denies further CP. No dyspnea, dizziness, palpitations, PND. Objective Medications Item Value Date Time Aspirin 325 mg 07/07/17 0900 (Aspirin) DAILY/PO 07/07/17 0831 Carvedilol 3.125 mg 07/06/17 2100 (Coreg) Q12HR/PO 07/07/17 0832 Atorvastatin 10 mg 07/06/17 2100 Calcium HS/PO 07/06/17 213 (Lipitor) Enalapril Maleate 2.5 mg 07/06/17 2100 (Vasotec) BID/PO 07/07/17 0831 Nitroglycerin 1 inch 07/06/17 0800 (Nitroglycerin Q6HR/TOP 2% Oint) Heparin Sodium/ 250 ml @ 10 mls/hr 07/06/17 0800 Dextrose TITRATE PRN/IV 07/07/17 0358 Current Medications Medications (Trade) Dose Ordered Sig/Shelby Route Start Time Stop Time Status Last Admin (NS Flush) 2 ml BID IV FLUSH 07/06/17 09:00 07/07/17 08:32 (NS Flush) 2 ml UNSCH PRN IV FLUSH 07/06/17 02:15 (Aspirin) 325 mg DAILY PO 07/07/17 09:00 07/07/17 08:31 (Nitroglycerin 2% Oint) 1 inch Q6HR TOP 07/06/17 08:00 (Tylenol) 500 mg Q4H PRN PO 07/06/17 02:15 (Morphine Inj) 2 mg Q3HR PRN IV PUSH 07/06/17 02:15 (D50w (Vial) Inj) 50 ml UNSCH PRN IV PUSH 07/06/17 04:45 (Glucagon Inj) 1 mg UNSCH PRN OTHER 07/06/17 04:45 (NovoLOG SUPPLEMENTAL SCALE) 1 ACHS SLIDING SCALE SQ 07/06/17 08:00 07/06/17 21:33 Heparin Sodium/ Dextrose 250 ml @ 10 mls/hr TITRATE PRN IV 07/06/17 08:00 07/07/17 03:58 (Coreg) 3.125 mg Q12HR PO 07/06/17 21:00 07/07/17 08:32 (Lipitor) 10 mg HS PO 07/06/17 21:00 07/06/17 21:33 (Vasotec) 2.5 mg BID PO 07/06/17 21:00 07/07/17 08:31 Sodium Chloride 1,000 ml @ 100 mls/hr Q10H IV 07/06/17 17:00 07/11/17 16:59 (Benadryl) 50 mg JACQUARD [employer]ATOR PO 07/06/17 17:00 07/10/17 16:59 (Valium) 10 mg JACQUARD [employer] OPERATOR PO 07/06/17 17:00 07/10/17 16:59 Vital Signs / I&O Vital Signs Date Time Temp Pulse Resp B/P (MAP) Pulse Ox O2 Delivery O2 Flow Rate FiO2 07/07/17 12:00 63 07/07/17 11:00 97.9 75 20 127/79 (95) 94 07/07/17 11:00 68 07/07/17 10:00 70 07/07/17 09:00 68 07/07/17 08:00 66 07/07/17 07:00 68 07/07/17 07:00 98.3 75 20 126/88 (101) 96 07/07/17 06:00 72 07/07/17 05:00 78 07/07/17 04:00 72 07/07/17 03:00 76 07/07/17 03:00 99.1 76 18 120/73 (89) 96 07/07/17 02:00 74 07/07/17 01:00 72 07/07/17 00:00 72 07/06/17 23:00 77 07/06/17 23:00 99.4 77 18 95/48 (64) 96 07/06/17 22:00 84 07/06/17 21:00 84 07/06/17 20:00 99.2 79 18 127/84 (98) 94 07/06/17 20:00 80 07/06/17 19:00 82 07/06/17 18:06 96 07/06/17 16:00 97 I/O 07/06/17 07/06/17 07/06/17 07/07/17 07/07/17 07/07/17 07:00 15:00 23:00 07:00 15:00 23:00 Intake Total 40 ml 682 ml 370 ml Output Total 400 ml 850 ml 1625 ml Balance -360 ml -168 ml -1255 ml Intake Oral 0 ml 640 ml 240 ml IV Total 40 ml 42 ml 130 ml Output Urine Total 400 ml 850 ml 1625 ml # Bowel Movements 0 0 1 Physical Exam GENERAL: Well developed, well nourished. No acute distress. HEENT: Jugular venous pressure very hard to assess. CHEST: Lungs clear to auscultation bilaterally. Unlabored respiratory effort. CARDIAC: Regular rate and rhythm without S3, S4, or murmur. ABDOMEN: Soft, nontender, no hepatosplenomegaly. Bowel sounds present. EXTREMITIES: No clubbing, cyanosis, or edema. Laboratory Laboratory Tests Test 07/06/17 15:37 07/06/17 23:48 07/07/17 06:05 Activated Partial Thromboplast Time 28.0 SEC 29.2 SEC 30.2 SEC White Blood Count 9.5 TH/MM3 Red Blood Count 4.55 MIL/MM3 Hemoglobin 15.1 GM/DL Hematocrit 44.1 % Mean Corpuscular Volume 96.9 FL Mean Corpuscular Hemoglobin 33.1 PG Mean Corpuscular Hemoglobin Concent 34.1 % Red Cell Distribution Width 12.6 % Platelet Count 277 TH/MM3 Mean Platelet Volume 7.3 FL Neutrophils (%) (Auto) 50.5 % Lymphocytes (%) (Auto) 36.1 % Monocytes (%) (Auto) 8.7 % Eosinophils (%) (Auto) 4.0 % Basophils (%) (Auto) 0.7 % Neutrophils # (Auto) 4.8 TH/MM3 Lymphocytes # (Auto) 3.4 TH/MM3 Monocytes # (Auto) 0.8 TH/MM3 Eosinophils # (Auto) 0.4 TH/MM3 Basophils # (Auto) 0.1 TH/MM3 CBC Comment DIFF FINAL Differential Comment Blood Urea Nitrogen 15 MG/DL Creatinine 0.96 MG/DL Random Glucose 193 MG/DL Calcium Level 8.3 MG/DL Sodium Level 136 MEQ/L Potassium Level 4.0 MEQ/L Chloride Level 102 MEQ/L Carbon Dioxide Level 28.9 MEQ/L Anion Gap 5 MEQ/L Estimat Glomerular Filtration Rate 81 ML/MIN Assessment and Plan Problem List: (1) CAD (coronary artery disease) ICD Codes: I25.10 - Atherosclerotic heart disease of [place] coronary artery without angina pectoris Plan: Stable overnight. Cath shows likely chronic total occlusion of proximal left circumflex with fair to good RCA to circumflex collateral, mild to moderate non-obstructive disease in LAD and RCA. REC medical therapy, continue beta christiane, SARA-I, aspirin, add oral nitrate (2) Dilated cardiomyopathy ICD Codes: I42.0 - Dilated cardiomyopathy Status: Chronic Plan: Possible mild CHF on admission. EF 15-20% by cath. Suspect cardiomyopathy is predominantly non-ischemic in origin. REC continue carvedilol, enalapril echo in 90 days to reassess EF, consider ICD implant if EF still < 35% will consider LifeVest (3) Hyperlipidemia ICD Codes: E78.5 - Hyperlipidemia, unspecified Plan: Suboptimal lipid profile with LDL 111. Continue statin. (4) Hypertension ICD Codes: I10 - Essential (primary) hypertension Status: Acute Plan: Stable. Normotensive. Code Status full code Discussed Condition With patient's family Problem Qualifiers (1) CAD (coronary artery disease): Qualified Codes: I25.110 - Atherosclerotic heart disease of [place] coronary artery with unstable angina pectoris (2) Hyperlipidemia: Qualified Codes: E78.2 - Mixed hyperlipidemia (3) Hypertension: Qualified Codes: I10 - Essential (primary) hypertension Carter Mars MD Jul 07, 2017 15:37
--- NOTE | 2017-07-07 15:43 | MA ---
cc: AI BIRD M.D. DATE: 07/07/2017 PROCEDURE Left heart catheterization, selective coronary angiography, left ventriculography. PROCEDURE NOTE The patient was brought to the cardiac catheterization laboratory in a fasting state after having signed informed consent. The right radial region was prepped and draped as per policy and anesthetized with 1% lidocaine. Arterial access was obtained via the right radial artery and a 6-[place]izen [place] sheath placed. Coronary arteriography was performed using a [place] catheter. Additional shots of the left system were taken with a Joanne left 3.5. Left ventriculography was done using a standard 6-[place]izen [place] pigtail. There were no apparent immediate complications. A radial artery compression band was applied to his right wrist at the end of the case to achieve good hemostasis. HEMODYNAMIC DATA Left ventricle 120 with an end-diastolic pressure of 18. Aorta 113/79 with a mean of 95. There was no significant transvalvular aortic gradient on pullback of the pigtail catheter. CORONARY ARTERIOGRAPHY The left main is normal. The left anterior descending is diffusely diseased. There is likely up to 30% stenosis in the distal third of the proximal LAD. The mid-LAD has probably up to 40% stenosis diffusely right after the takeoff of a fairly large branching diagonal. This diagonals more medial branch, which is smaller, has up to 40% proximal stenosis. The mid to distal LAD otherwise has mild diffuse disease up to 20% severity. Left circumflex appears to be totally occluded proximally. There are fair to good right coronary to obtuse marginal collaterals. The right coronary artery is a very large dominant vessel which is diffusely diseased. There is likely up to 30% stenosis in the proximal and midportions and up to 40% stenosis. LEFT VENTRICULOGRAPHY Contrast injection of the left ventricle reveals severe global hypokinesis. Ejection fraction is estimated at 15-20%. CONCLUSION 1. Severe single-vessel coronary artery disease, a totally occluded but collateralized left circumflex. 2. Severely reduced left ventricular systolic function with ejection fraction estimated at 15-20%. MD DIRK Osullivan/ISAURO /3:33 PM /3:42 PM MADELIN
[2017-07-07] MEDS ORDERED: IOHEXOL 350 MG/ML 50 ML BTL (for Cath Lab) OTHER ONE (16:28)
[2017-07-07] MEDS ORDERED: IOHEXOL 350 MG/ML 100 ML BTL (for Cath Lab) OTHER ONE (16:28)
[2017-07-07 20:05] LABS: APTT (PATIENT) 26.6 SEC (24.3-30.1)
[2017-07-07] MEDS: ATORVASTATIN 10 MG TAB PO SCH (21:46)
[2017-07-08] VITALS (25 sets, daily range): BP systolic 122–144; BP diastolic 75–86; PULSE 63–80; RESP 16–20; TEMP 97.6–98.9; O2SAT 95–98
[2017-07-08] MEDS: ISOSORBIDE MONONITRATE 30 MG TAB PO SCH (06:25)
[2017-07-08 07:07] LABS: AUTOMATED NEUTROPHIL # 5.1 TH/MM3 (1.8-7.7); BASOPHIL % 0.5 % (0.0-2.0); EOSINOPHIL # 0.2 TH/MM3 (0-0.4); EOSINOPHIL % 2.5 % (0.0-4.0); HEMO FLAGS DIFF FINAL; LYMPH % 31.7 % (9.0-44.0); MEAN CELL VOLUME 96.2 FL (80.0-100.0); MEAN CORPUSCULAR HEMOGLOBIN 33.5 PG (27.0-34.0); MEAN CORPUSCULAR HGB CONC 34.8 % (32.0-36.0); MONO % 10.2 % (0.0-8.0); NEUT % 55.1 % (16.0-70.0); PLATELET COUNT 276 TH/MM3 (150-450); RED BLOOD COUNT 4.67 MIL/MM3 (4.50-5.90); RED CELL DISTRIBUTION WIDTH 12.7 % (11.6-17.2); WHITE BLOOD COUNT 9.3 TH/MM3 (4.0-11.0)
[2017-07-08 07:36] LABS: ANION GAP 9 MEQ/L (5-15); AST (GOT) 14 U/L (15-37); BICARBONATE 23.6 MEQ/L (21.0-32.0); BLOOD UREA NITROGEN 13 MG/DL (7-18); CHLORIDE 102 MEQ/L (98-107); GLOMERULAR FILTRATION RATE 101 ML/MIN (>89); POTASSIUM 3.8 MEQ/L (3.5-5.1); SODIUM (NA) 135 MEQ/L (136-145)
[2017-07-08 07:37] LABS: ALT (GPT) 37 U/L (12-78)
[2017-07-08 07:46] LABS: ALKALINE PHOSPHATASE 85 U/L (45-117); FREE T4 0.73 NG/DL (0.76-1.46); TOTAL BILIRUBIN ADULT 0.4 MG/DL (0.2-1.0)
[2017-07-08] MEDS: INSULIN ASPART SUPPLEMENTAL SCALE SQ SCH ×4 (08:00→21:00)
[2017-07-08] MEDS: ASPIRIN 325 MG TAB PO SCH (08:01)
[2017-07-08] MEDS: CARVEDILOL 3.125 MG TAB PO SCH ×2 (08:01→21:26)
[2017-07-08] MEDS: ENALAPRIL MALEATE 2.5 MG TAB PO SCH ×2 (08:02→21:26)
[2017-07-08] MEDS: SODIUM CHLORIDE 0.9% FLUSH 10 ML FLUSH IV FLUSH SCH ×2 (08:05→21:26)
--- NOTE | 2017-07-08 08:25 | PD.CARD.PN ---
Subjective Subjective Remarks Denies further CP. No dyspnea, dizziness, palpitations, PND. Objective Medications Item Value Date Time Isosorbide 30 mg 07/08/17 0700 Mononitrate DAILY@07/PO 07/08/17 0625 (Imdur) Aspirin 325 mg 07/07/17 0900 (Aspirin) DAILY/PO 07/08/17 0801 Carvedilol 3.125 mg 07/06/17 2100 (Coreg) Q12HR/PO 07/08/17 08 Atorvastatin 10 mg 07/06/17 2100 Calcium HS/PO 07/07/17 214 (Lipitor) Enalapril Maleate 2.5 mg 07/06/172099 (Vasotec) BID/PO 07/08/17 0802 Current Medications Medications (Trade) Dose Ordered Sig/Shelby Route Start Time Stop Time Status Last Admin (NS Flush) 2 ml BID IV FLUSH 07/06/17 09:00 07/08/17 08:05 (NS Flush) 2 ml UNSCH PRN IV FLUSH 07/06/17 02:15 (Aspirin) 325 mg DAILY PO 07/07/17 09:00 07/08/17 08:01 (Tylenol) 500 mg Q4H PRN PO 07/06/17 02:15 (Morphine Inj) 2 mg Q3HR PRN IV PUSH 07/06/17 02:15 (D50w (Vial) Inj) 50 ml UNSCH PRN IV PUSH 07/06/17 04:45 (Glucagon Inj) 1 mg UNSCH PRN OTHER 07/06/17 04:45 (NovoLOG SUPPLEMENTAL SCALE) 1 ACHS SLIDING SCALE SQ 07/06/17 08:00 07/08/17 08:00 Heparin Sodium/ Dextrose 250 ml @ 10 mls/hr TITRATE PRN IV 07/06/17 08:00 07/07/17 03:58 (Coreg) 3.125 mg Q12HR PO 07/06/17 21:00 07/08/17 08:01 (Lipitor) 10 mg HS PO 07/06/17 21:00 07/07/17 21:46 (Vasotec) 2.5 mg BID PO 07/06/17 21:00 07/08/17 08:02 Sodium Chloride 1,000 ml @ 100 mls/hr Q10H IV 07/06/17 17:00 07/11/17 16:59 (Benadryl) 50 mg RELAYS DRAFTSPERSON PO 07/06/17 17:00 07/10/17 16:59 (Valium) 10 mg RELAYS DRAFTSPERSON PO 07/06/17 17:00 07/10/17 16:59 (Imdur) 30 mg DAILY@07 PO 07/08/17 07:00 07/08/17 06:25 Vital Signs / I&O Vital Signs Date Time Temp Pulse Resp B/P (MAP) Pulse Ox O2 Delivery O2 Flow Rate FiO2 07/08/17 07:00 98.3 68 18 126/79 (95) 95 07/08/17 07:00 68 07/08/17 06:00 68 07/08/17 05:00 68 07/08/17 04:00 68 07/08/17 03:00 70 07/08/17 03:00 98.2 69 16 122/82 (95) 97 07/08/17 02:00 63 07/08/17 01:00 68 07/08/17 00:00 68 07/07/17 23:00 72 07/07/17 23:00 98.7 71 20 137/98 (111) 95 07/07/17 22:00 92 07/07/17 21:00 72 07/07/17 20:00 76 07/07/17 19:00 70 07/07/17 19:00 98.9 79 20 116/72 (87) 94 07/07/17 18:00 76 07/07/17 17:00 74 07/07/17 16:00 88 07/07/17 15:47 74 07/07/17 15:00 98.3 70 20 120/88 (99) 100 07/07/17 15:00 88 07/07/17 13:00 64 07/07/17 12:00 63 07/07/17 11:00 97.9 75 20 127/79 (95) 94 07/07/17 11:00 68 07/07/17 10:00 70 07/07/17 09:00 68 I/O 07/07/17 07/07/17 07/07/17 07/08/17 07/08/17 07/08/17 07:00 15:00 23:00 07:00 15:00 23:00 Intake Total 370 ml 1010 ml 600 ml Output Total 1625 ml 1000 ml 550 ml Balance -1255 ml 10 ml 50 ml Intake Oral 240 ml 480 ml 600 ml IV Total 130 ml 530 ml Output Urine Total 1625 ml 1000 ml 550 ml # Bowel Movements 1 1 Physical Exam GENERAL: Well developed, well nourished. No acute distress. HEENT: Jugular venous pressure very hard to assess. CHEST: Lungs clear to auscultation bilaterally. Unlabored respiratory effort. CARDIAC: Regular rate and rhythm without S3, S4, or murmur. ABDOMEN: Soft, nontender, no hepatosplenomegaly. Bowel sounds present. EXTREMITIES: No clubbing, cyanosis, or edema. Laboratory Laboratory Tests Test 07/07/17 19:07 07/08/17 06:07 Activated Partial Thromboplast Time 26.6 SEC White Blood Count 9.3 TH/MM3 Red Blood Count 4.67 MIL/MM3 Hemoglobin 15.7 GM/DL Hematocrit 45.0 % Mean Corpuscular Volume 96.2 FL Mean Corpuscular Hemoglobin 33.5 PG Mean Corpuscular Hemoglobin Concent 34.8 % Red Cell Distribution Width 12.7 % Platelet Count 276 TH/MM3 Mean Platelet Volume 7.7 FL Neutrophils (%) (Auto) 55.1 % Lymphocytes (%) (Auto) 31.7 % Monocytes (%) (Auto) 10.2 % Eosinophils (%) (Auto) 2.5 % Basophils (%) (Auto) 0.5 % Neutrophils # (Auto) 5.1 TH/MM3 Lymphocytes # (Auto) 3.0 TH/MM3 Monocytes # (Auto) 1.0 TH/MM3 Eosinophils # (Auto) 0.2 TH/MM3 Basophils # (Auto) 0.0 TH/MM3 CBC Comment DIFF FINAL Differential Comment Blood Urea Nitrogen 13 MG/DL Creatinine 0.79 MG/DL Random Glucose 176 MG/DL Total Protein 6.7 GM/DL Albumin 2.9 GM/DL Calcium Level 8.4 MG/DL Phosphorus Level 3.4 MG/DL Magnesium Level 2.0 MG/DL Alkaline Phosphatase 85 U/L Aspartate Amino Transf (AST/SGOT) 14 U/L Alanine Aminotransferase (ALT/SGPT) 37 U/L Total Bilirubin 0.4 MG/DL Sodium Level 135 MEQ/L Potassium Level 3.8 MEQ/L Chloride Level 102 MEQ/L Carbon Dioxide Level 23.6 MEQ/L Anion Gap 9 MEQ/L Estimat Glomerular Filtration Rate 101 ML/MIN Free Thyroxine 0.73 NG/DL Thyroid Stimulating Hormone 3rd Gen 3.320 uIU/ML Assessment and Plan Problem List: (1) CAD (coronary artery disease) ICD Codes: I25.10 - Atherosclerotic heart disease of [place] coronary artery without angina pectoris Plan: Stable overnight. Cath shows likely chronic total occlusion of proximal left circumflex with fair to good RCA to circumflex collaterals, mild to moderate non-obstructive disease in LAD and RCA. REC medical therapy, continue beta christiane, SARA-I, aspirin, isosorbide OK to discharge today after he receives LifeVest (2) Dilated cardiomyopathy ICD Codes: I42.0 - Dilated cardiomyopathy Status: Chronic Plan: Possible mild CHF on admission. EF 15-20% by cath. Suspect cardiomyopathy is predominantly non-ischemic in origin. Patient compensated at present. REC continue carvedilol, enalapril echo in 90 days to reassess EF, consider ICD implant if EF still < 35% await insurance approval for LifeVest today (3) Hyperlipidemia ICD Codes: E78.5 - Hyperlipidemia, unspecified Plan: Suboptimal lipid profile with LDL 111. Continue statin. (4) Hypertension ICD Codes: I10 - Essential (primary) hypertension Status: Acute Plan: Stable. Normotensive. Code Status full code Discussed Condition With patient, at length Problem Qualifiers (1) CAD (coronary artery disease): Qualified Codes: I25.110 - Atherosclerotic heart disease of [place] coronary artery with unstable angina pectoris (2) Hyperlipidemia: Qualified Codes: E78.2 - Mixed hyperlipidemia (3) Hypertension: Qualified Codes: I10 - Essential (primary) hypertension Carter Mars MD Jul 08, 2017 08:25
[2017-07-08 12:04] LABS: HEMOGLOBIN A1a 1.3 %; HEMOGLOBIN A1b 1.2 %; HEMOGLOBIN Ao 80.4 %; HEMOGLOBIN F 1.5 %; HEMOGLOBIN LA1C 2.5 %; HEMOGLOBIN P3 4.1 %
--- NOTE | 2017-07-08 15:00 | HHI.PR ---
Subjective Remarks 57-year-old male with a past medical history significant for hypertension and type 2 diabetes mellitus who presents with increasing shortness of breath and chest tightness 1 day. The patient reports that he was having shortness of breath and chest pressure when he woke up this morning. His shortness of breath was relieved with lying down however when he woke up to take a shower to go to work, the pain and shortness of breath returned. He was previously stented in 2010 in [place], however has not been on any medications in quite some time. He carries a diagnosis of hypertension and diabetes however does not take any medications because he cannot afford these. He last saw PCP approximately 3 years ago. Troponin on admission was 0.39. EKG with no ST segment elevations or depressions. Chest x-ray significant for pulmonary vascular congestion. 07/06/17-patient seen and examined and currently he is free of chest pain 07-07 NO CHEST PAIN DW RN AND PT TO HAVE CARDIAC CATH LATER TODAY AM LABS 07-08 CATH SHOWED LOW EF 15-20 WILL NEED LIFE VEST BEFORE DISCHARGE CHARITY PHILLIPS AND PATIENT AND RN NEEDS TO STOP SMOKING WILL NEED FOLLOWUPS AFTER DC WORKS AT [facility] DENIES CHEST PAIN OR PALPITATIONS AT THIS TIME Objective Vitals Vital Signs Date Time Temp Pulse Resp B/P (MAP) Pulse Ox O2 Delivery O2 Flow Rate FiO2 07/08/17 14:00 69 07/08/17 13:00 68 07/08/17 12:00 73 07/08/17 11:00 71 07/08/17 11:00 98.4 71 18 124/75 (91) 96 07/08/17 10:00 70 07/08/17 09:00 68 07/08/17 08:00 68 07/08/17 07:00 98.3 68 18 126/79 (95) 95 07/08/17 07:00 68 07/08/17 06:00 68 07/08/17 05:00 68 07/08/17 04:00 68 07/08/17 03:00 70 07/08/17 03:00 98.2 69 16 122/82 (95) 97 07/08/17 02:00 63 07/08/17 01:00 68 07/08/17 00:00 68 07/07/17 23:00 72 07/07/17 23:00 98.7 71 20 137/98 (111) 95 07/07/17 22:00 92 07/07/17 21:00 72 07/07/17 20:00 76 07/07/17 19:00 70 07/07/17 19:00 98.9 79 20 116/72 (87) 94 07/07/17 18:00 76 07/07/17 17:00 74 07/07/17 16:00 88 07/07/17 15:47 74 07/07/17 15:00 98.3 70 20 120/88 (99) 100 07/07/17 15:00 88 I/O 07/07/17 07/07/17 07/07/17 07/08/17 07/08/17 07/08/17 07:00 15:00 23:00 07:00 15:00 23:00 Intake Total 370 ml 1010 ml 600 ml 500 ml Output Total 1625 ml 1000 ml 550 ml Balance -1255 ml 10 ml 50 ml 500 ml Intake Oral 240 ml 480 ml 600 ml IV Total 130 ml 530 ml 500 ml Output Urine Total 1625 ml 1000 ml 550 ml # Bowel Movements 1 1 Result Diagram: 07/08/17 0607 07/08/17 0607 Other Results Laboratory Tests Test 07/06/17 00:08 07/06/17 06:03 07/06/17 09:40 07/06/17 13:30 White Blood Count 8.9 TH/MM3 8.7 TH/MM3 Red Blood Count 4.95 MIL/MM3 4.54 MIL/MM3 Hemoglobin 16.2 GM/DL 15.3 GM/DL Hematocrit 47.4 % 44.2 % Mean Corpuscular Volume 95.9 FL 97.2 FL Mean Corpuscular Hemoglobin 32.8 PG 33.6 PG Mean Corpuscular Hemoglobin Concent 34.2 % 34.6 % Red Cell Distribution Width 13.0 % 12.9 % Platelet Count 294 TH/MM3 280 TH/MM3 Mean Platelet Volume 7.3 FL 7.4 FL Neutrophils (%) (Auto) 52.5 % Lymphocytes (%) (Auto) 34.7 % Monocytes (%) (Auto) 8.9 % Eosinophils (%) (Auto) 3.1 % Basophils (%) (Auto) 0.8 % Neutrophils # (Auto) 4.7 TH/MM3 Lymphocytes # (Auto) 3.1 TH/MM3 Monocytes # (Auto) 0.8 TH/MM3 Eosinophils # (Auto) 0.3 TH/MM3 Basophils # (Auto) 0.1 TH/MM3 CBC Comment DIFF FINAL Differential Comment Prothrombin Time 11.3 SEC Prothromb Time International Ratio 1.0 RATIO Activated Partial Thromboplast Time 28.7 SEC 29.1 SEC Blood Urea Nitrogen 13 MG/DL Creatinine 0.81 MG/DL Random Glucose 187 MG/DL Calcium Level 8.2 MG/DL Magnesium Level 1.9 MG/DL Sodium Level 137 MEQ/L Potassium Level 4.1 MEQ/L Chloride Level 103 MEQ/L Carbon Dioxide Level 24.8 MEQ/L Anion Gap 9 MEQ/L Estimat Glomerular Filtration Rate 99 ML/MIN Total Creatine Kinase 143 U/L 103 U/L 87 U/L Creatine Kinase MB 2.7 NG/ML Troponin I 0.39 NG/ML 0.39 NG/ML 0.33 NG/ML B-Type Natriuretic Peptide 95 PG/ML Triglycerides Level 233 MG/DL Cholesterol Level 209 MG/DL LDL Cholesterol 111 MG/DL HDL Cholesterol 51.6 MG/DL Cholesterol/HDL Ratio 4.05 RATIO Hemoglobin A1c 8.8 % Test 07/06/17 15:37 07/06/17 23:48 07/07/17 06:05 07/07/17 19:07 Activated Partial Thromboplast Time 28.0 SEC 29.2 SEC 30.2 SEC 26.6 SEC White Blood Count 9.5 TH/MM3 Red Blood Count 4.55 MIL/MM3 Hemoglobin 15.1 GM/DL Hematocrit 44.1 % Mean Corpuscular Volume 96.9 FL Mean Corpuscular Hemoglobin 33.1 PG Mean Corpuscular Hemoglobin Concent 34.1 % Red Cell Distribution Width 12.6 % Platelet Count 277 TH/MM3 Mean Platelet Volume 7.3 FL Neutrophils (%) (Auto) 50.5 % Lymphocytes (%) (Auto) 36.1 % Monocytes (%) (Auto) 8.7 % Eosinophils (%) (Auto) 4.0 % Basophils (%) (Auto) 0.7 % Neutrophils # (Auto) 4.8 TH/MM3 Lymphocytes # (Auto) 3.4 TH/MM3 Monocytes # (Auto) 0.8 TH/MM3 Eosinophils # (Auto) 0.4 TH/MM3 Basophils # (Auto) 0.1 TH/MM3 CBC Comment DIFF FINAL Differential Comment Blood Urea Nitrogen 15 MG/DL Creatinine 0.96 MG/DL Random Glucose 193 MG/DL Calcium Level 8.3 MG/DL Sodium Level 136 MEQ/L Potassium Level 4.0 MEQ/L Chloride Level 102 MEQ/L Carbon Dioxide Level 28.9 MEQ/L Anion Gap 5 MEQ/L Estimat Glomerular Filtration Rate 81 ML/MIN Test 07/08/17 06:07 White Blood Count 9.3 TH/MM3 Red Blood Count 4.67 MIL/MM3 Hemoglobin 15.7 GM/DL Hematocrit 45.0 % Mean Corpuscular Volume 96.2 FL Mean Corpuscular Hemoglobin 33.5 PG Mean Corpuscular Hemoglobin Concent 34.8 % Red Cell Distribution Width 12.7 % Platelet Count 276 TH/MM3 Mean Platelet Volume 7.7 FL Neutrophils (%) (Auto) 55.1 % Lymphocytes (%) (Auto) 31.7 % Monocytes (%) (Auto) 10.2 % Eosinophils (%) (Auto) 2.5 % Basophils (%) (Auto) 0.5 % Neutrophils # (Auto) 5.1 TH/MM3 Lymphocytes # (Auto) 3.0 TH/MM3 Monocytes # (Auto) 1.0 TH/MM3 Eosinophils # (Auto) 0.2 TH/MM3 Basophils # (Auto) 0.0 TH/MM3 CBC Comment DIFF FINAL Differential Comment Blood Urea Nitrogen 13 MG/DL Creatinine 0.79 MG/DL Random Glucose 176 MG/DL Total Protein 6.7 GM/DL Albumin 2.9 GM/DL Calcium Level 8.4 MG/DL Phosphorus Level 3.4 MG/DL Magnesium Level 2.0 MG/DL Alkaline Phosphatase 85 U/L Aspartate Amino Transf (AST/SGOT) 14 U/L Alanine Aminotransferase (ALT/SGPT) 37 U/L Total Bilirubin 0.4 MG/DL Sodium Level 135 MEQ/L Potassium Level 3.8 MEQ/L Chloride Level 102 MEQ/L Carbon Dioxide Level 23.6 MEQ/L Anion Gap 9 MEQ/L Estimat Glomerular Filtration Rate 101 ML/MIN Hemoglobin A1c 8.7 % Free Thyroxine 0.73 NG/DL Thyroid Stimulating Hormone 3rd Gen 3.320 uIU/ML Imaging Last Impressions Chest X-Ray 07/05/17 [id number] Signed Impressions: Service Date/Time: Thursday, July 06, 2017 00:10 - CONCLUSION: Mild pulmonary vascular congestion. Surgical clips overlie left chest. Some bony hypertrophy of the right AC joint. Alan Meléndez MD Objective Remarks GENERAL: Awake alert oriented 3 --talkative and cooperative SKIN: Warm and dry. HEAD: Atraumatic. Normocephalic. EYES: Pupils equal and round. No scleral icterus. No injection or drainage. Extraocular muscles intact ENT: No nasal bleeding or discharge. Mucous membranes pink and moist. Tongue is midline NECK: Trachea midline. No JVD. Neck is supple CARDIOVASCULAR: Regular rate and rhythm. S1-S2 no S3-S4 no heave or thrill or rub or gallop RESPIRATORY: No accessory muscle use. Clear to auscultation. Breath sounds equal bilaterally. GASTROINTESTINAL: Abdomen soft, non-tender, nondistended. Hepatic and splenic margins not palpable. Obese MUSCULOSKELETAL: Extremities without clubbing, cyanosis, or edema. No obvious deformities. NEUROLOGICAL: Awake and alert. No obvious cranial nerve deficits. Motor grossly within normal limits. Five out of 5 muscle strength in the arms and legs. Normal speech. PSYCHIATRIC: Appropriate mood and affect; insight and judgment normal. Procedures AI BIRD M.D. DATE: 07/07/2017 PROCEDURE Left heart catheterization, selective coronary angiography, left ventriculography. PROCEDURE NOTE The patient was brought to the cardiac catheterization laboratory in a fasting state after having signed informed consent. The right radial region was prepped and draped as per policy and anesthetized with 1% lidocaine. Arterial access was obtained via the right radial artery and a 6-Somali sheath placed. Coronary arteriography was performed using a Browning catheter. Additional shots of the left system were taken with a Joanne left 3.5. Left ventriculography was done using a standard 6-Somali pigtail. There were no apparent immediate complications. A radial artery compression band was applied to his right wrist at the end of the case to achieve good hemostasis. HEMODYNAMIC DATA Left ventricle 120 with an end-diastolic pressure of 18. Aorta 113/79 with a mean of 95. There was no significant transvalvular aortic gradient on pullback of the pigtail catheter. CORONARY ARTERIOGRAPHY The left main is normal. The left anterior descending is diffusely diseased. There is likely up to 30% stenosis in the distal third of the proximal LAD. The mid-LAD has probably up to 40% stenosis diffusely right after the takeoff of a fairly large branching diagonal. This diagonals more medial branch, which is smaller, has up to 40% proximal stenosis. The mid to distal LAD otherwise has mild diffuse disease up to 20% severity. Left circumflex appears to be totally occluded proximally. There are fair to good right coronary to obtuse marginal collaterals. The right coronary artery is a very large dominant vessel which is diffusely diseased. There is likely up to 30% stenosis in the proximal and midportions and up to 40% stenosis. LEFT VENTRICULOGRAPHY Contrast injection of the left ventricle reveals severe global hypokinesis. Ejection fraction is estimated at 15-20%. CONCLUSION 1. Severe single-vessel coronary artery disease, a totally occluded but collateralized left circumflex. 2. Severely reduced left ventricular systolic function with ejection fraction estimated at 15-20%. NEEDS LIFE VEST AT DC Medications and IVs Current Medications Aspirin (Aspirin Chew) 324 mg ONCE ONCE CHEW Last administered on 07/06/17 00:22; Start 07/06/17 at 00:15; Stop 07/06/17 at 00:17; Status DC Heparin Sodium (Porcine) (Heparin Inj) 4,000 units ONCE ONCE IV Last administered on 07/06/17 01:45; Start 07/06/17 at 01:45; Stop 07/06/17 at 01 :46; Status DC Heparin Sodium/ Dextrose 250 ml @ 10 mls/hr TITRATE PRN IV Coagulation Management Last administered on 07/06/17 02:12; Start 07/06/17 at 01:45; Stop 07/06/17 at 07:52; Status DC Nitroglycerin (Nitroglycerin 2% Oint) 1 inch ONCE ONCE TOPICAL Last administered on 07/06/17 02:32; Start 07/06/17 at 02:00; Stop 07/06/17 at 02 :01; Status DC Furosemide (Lasix Inj) 20 mg ONCE ONCE IV PUSH Last administered on 02:32; Start 07/06/17 at 02:15; Stop 07/06/17 at 02:16; Status DC Sodium Chloride (NS Flush) 2 ml BID IV FLUSH Last administered on 07/08/17 08 :05; Start 07/06/17 at 09:00 Sodium Chloride (NS Flush) 2 ml UNSCH PRN IV FLUSH FLUSH AFTER USING IV ACCESS ; Start 07/06/17 at 02:15 Aspirin (Aspirin) 325 mg DAILY PO Last administered on 07/08/17 08:01; Start 07/07/17 at 09:00 Nitroglycerin (Nitroglycerin 2% Oint) 1 inch Q6HR TOP ; Start 07/06/17 at 08:00 ; Stop 07/07/17 at 15:39; Status DC Acetaminophen (Tylenol) 500 mg Q4H PRN PO HEADACHE; Start 07/06/17 at 02:15 Morphine Sulfate (Morphine Inj) 2 mg Q3HR PRN IV PUSH PAIN SCALE 6 TO 10; Start 07/06/17 at 02:15 Dextrose (D50w (Vial) Inj) 50 ml UNSCH PRN IV PUSH HYPOGLYCEMIA-SEE COMMENTS; Start 07/06/17 at 04:45 Glucagon (Glucagon Inj) 1 mg UNSCH PRN OTHER HYPOGLYCEMIA-SEE COMMENTS; Start 07/06/17 at 04:45 Insulin Aspart (NovoLOG SUPPLEMENTAL SCALE) 1 ACHS SLIDING SCALE SQ Last administered on 07/08/17 12:00; Start 07/06/17 at 08:00 Heparin Sodium/ Dextrose 250 ml @ 10 mls/hr TITRATE PRN IV Coagulation Management Last administered on 07/07/17 03:58; Start 07/06/17 at 08:00 Carvedilol (Coreg) 3.125 mg Q12HR PO Last administered on 07/08/17 08:01; Start 07/06/17 at 21:00 Atorvastatin Calcium (Lipitor) 10 mg HS PO Last administered on 07/07/17 21: 46; Start 07/06/17 at 21:00 Enalapril Maleate (Vasotec) 2.5 mg BID PO Last administered on 07/08/17 08:02 ; Start 07/06/17 at 21:00 Sodium Chloride 1,000 ml @ 100 mls/hr Q10H IV Last administered on 07/07/17 03:00; Start 07/06/17 at 17:00; Stop 07/11/17 at 16:59 Diphenhydramine HCl (Benadryl) 50 mg MACHINE FEEDER PO ; Start 07/06/17 at 17:00; Stop 07/10/17 at 16:59 Diazepam (Valium) 10 mg MACHINE FEEDER PO ; Start 07/06/17 at 17:00; Stop 07/10/17 at 16:59 Heparin Sodium/ Sodium Chloride 500 ml @ As Directed STK-MED ONCE .ROUTE Last administered on 07/07/17 14:47; Start 07/07/17 at 14:47; Stop 07/07/17 at 14 :48; Status DC Midazolam HCl (Versed Inj) 2 mg STK-MED ONCE .ROUTE Last administered on 15:00; Start 07/07/17 at 14:47; Stop 07/07/17 at 14:48; Status DC Fentanyl Citrate (fentaNYL INJ) 100 mcg STK-MED ONCE .ROUTE ; Start 07/07/17 at 14:47; Stop 07/07/17 at 14:48; Status DC Verapamil HCl (Isoptin Inj) 5 mg STK-MED ONCE .ROUTE Last administered on 07/07 15:08; Start 07/07/17 at 14:47; Stop 07/07/17 at 14:48; Status DC Heparin Sodium (Porcine) (Heparin Inj) 10,000 units STK-MED ONCE .ROUTE Last administered on 07/07/17 15:08; Start 07/07/17 at 14:48; Stop 07/07/17 at 14 :49; Status DC Nitroglycerin 5 ml @ As Directed STK-MED ONCE .ROUTE Last administered on 07/07 15:08; Start 07/07/17 at 14:48; Stop 07/07/17 at 14:49; Status DC Isosorbide Mononitrate (Imdur) 30 mg DAILY@07 PO Last administered on 06:25; Start 07/08/17 at 07:00 Iohexol (OMNIPAQUE 350 INJ ([employer])) 100 ml STK-MED ONCE OTHER ; Start at 16:28; Stop 07/07/17 at 16:29; Status DC Iohexol (OMNIPAQUE 350 INJ ([employer])) 50 ml STK-MED ONCE OTHER ; Start at 16:28; Stop 07/07/17 at 16:29; Status DC A/P Problem List: (1) Non-ST elevation myocardial infarction (NSTEMI) ICD Code: I21.4 - Non-ST elevation (NSTEMI) myocardial infarction Status: Acute (2) Hypertension ICD Code: I10 - Essential (primary) hypertension Status: Acute (3) Diabetes mellitus ICD Code: E11.9 - Type 2 diabetes mellitus without complications Status: Acute (4) Tobacco use ICD Code: Z72.0 - Tobacco use Status: Acute Assessment and Plan Continue with ACS rule out including serial troponin/EKG Currently on Heparin drip, Nitropaste, beta christiane, statin, aspirin Cardiology consulted for possible evaluation for left heart catheterization later today Currently chest pain-free CAD BUT NOT AMENABLE TO SURGERY NEEDS MEDICAL THERAPY AND LIFE VEST FOR DC EF 15-20% 2. Shortness of breath Likely secondary to NSTEMI Chest x-ray significant for mild pulmonary vascular congestion Status post IV Lasix 1 Supplemental oxygen SMOKING CESSATION RECOMMENDED 3. Diabetes mellitus Not currently on any medication A1c pending Continue with SSI WILL NEED MEDICATIONS AT DC 4. Hypertension Start Coreg twice a day 5. Hyperlipidemia LDL 111 Start Lipitor at bedtime Malignant noncompliance since patient has not seen a physician in many years even though he has insurance AND COULD NOT AFFORD TO TAKE HIS MEDICATIONS OR SEE A PHYSICIAN Discharge Planning [facility] 2 TO 3 WITH EF OF 15-20 NEEDS LIFEVEST AT DC Problem Qualifiers (1) Hypertension: Qualified Codes: I10 - Essential (primary) hypertension Porter Sewell DO Jul 08, 2017 15:00
[2017-07-08] MEDS: metFORMIN HCL 500 MG TAB PO SCH (17:22)
[2017-07-08] MEDS: SODIUM CHLOR 0.9% 1000 ML INJ 1,000 ML IV SCH (19:00)
[2017-07-08] MEDS: ATORVASTATIN 10 MG TAB PO SCH (21:26)
[2017-07-09] VITALS (15 sets, daily range): BP systolic 118–140; BP diastolic 64–80; PULSE 57–77; RESP 18; TEMP 97.5–98.5; O2SAT 94–95
[2017-07-09] MEDS: SODIUM CHLOR 0.9% 1000 ML INJ 1,000 ML IV SCH (01:43)
[2017-07-09] MEDS: ISOSORBIDE MONONITRATE 30 MG TAB PO SCH (06:19)
[2017-07-09 07:03] LABS: ANION GAP 6 MEQ/L (5-15); AST (GOT) 16 U/L (15-37); BICARBONATE 29.6 MEQ/L (21.0-32.0); CHLORIDE 102 MEQ/L (98-107); GLOMERULAR FILTRATION RATE 81 ML/MIN (>89); POTASSIUM 4.1 MEQ/L (3.5-5.1); SODIUM (NA) 138 MEQ/L (136-145)
[2017-07-09 07:09] LABS: ALKALINE PHOSPHATASE 88 U/L (45-117); ALT (GPT) 35 U/L (12-78); BLOOD UREA NITROGEN 11 MG/DL (7-18); TOTAL BILIRUBIN ADULT 0.5 MG/DL (0.2-1.0)
[2017-07-09 07:15] LABS: AUTOMATED NEUTROPHIL # 4.2 TH/MM3 (1.8-7.7); BASOPHIL # 0.1 TH/MM3 (0-0.2); BASOPHIL % 0.6 % (0.0-2.0); EOSINOPHIL # 0.3 TH/MM3 (0-0.4); EOSINOPHIL % 3.5 % (0.0-4.0); HEMATOCRIT 45.2 % (39.0-51.0); HEMO FLAGS DIFF FINAL; LYMPH % 39.4 % (9.0-44.0); LYMPHOCYTE # 3.5 TH/MM3 (1.0-4.8); MEAN CELL VOLUME 95.8 FL (80.0-100.0); MEAN CORPUSCULAR HEMOGLOBIN 33.5 PG (27.0-34.0); MEAN CORPUSCULAR HGB CONC 34.9 % (32.0-36.0); MONO % 9.1 % (0.0-8.0); NEUT % 47.4 % (16.0-70.0); PLATELET COUNT 280 TH/MM3 (150-450); RED BLOOD COUNT 4.72 MIL/MM3 (4.50-5.90); RED CELL DISTRIBUTION WIDTH 12.8 % (11.6-17.2); WHITE BLOOD COUNT 8.8 TH/MM3 (4.0-11.0)
[2017-07-09] MEDS: INSULIN ASPART SUPPLEMENTAL SCALE SQ SCH ×2 (08:00→12:00)
[2017-07-09] MEDS: CARVEDILOL 3.125 MG TAB PO SCH (08:15)
[2017-07-09] MEDS: metFORMIN HCL 500 MG TAB PO SCH (08:16)
[2017-07-09] MEDS: ASPIRIN 325 MG TAB PO SCH (08:16)
[2017-07-09] MEDS: ENALAPRIL MALEATE 2.5 MG TAB PO SCH (08:16)
[2017-07-09] MEDS: SODIUM CHLORIDE 0.9% FLUSH 10 ML FLUSH IV FLUSH SCH (08:16)
--- NOTE | 2017-07-09 09:50 | HHI.PR ---
Subjective Remarks 57-year-old male with a past medical history significant for hypertension and type 2 diabetes mellitus who presents with increasing shortness of breath and chest tightness 1 day. The patient reports that he was having shortness of breath and chest pressure when he woke up this morning. His shortness of breath was relieved with lying down however when he woke up to take a shower to go to work, the pain and shortness of breath returned. He was previously stented in 2010 in [place], however has not been on any medications in quite some time. He carries a diagnosis of hypertension and diabetes however does not take any medications because he cannot afford these. He last saw PCP approximately 3 years ago. Troponin on admission was 0.39. EKG with no ST segment elevations or depressions. Chest x-ray significant for pulmonary vascular congestion. 07/06/17-patient seen and examined and currently he is free of chest pain 07-07 NO CHEST PAIN DW RN AND PT TO HAVE CARDIAC CATH LATER TODAY AM LABS 07-08 CATH SHOWED LOW EF 15-20 WILL NEED LIFE VEST BEFORE DISCHARGE CHARITY [facility]ILL[facility] AND PATIENT AND RN NEEDS TO STOP SMOKING WILL NEED FOLLOWUPS AFTER DC WORKS AT [employer] DENIES CHEST PAIN OR PALPITATIONS AT THIS TIME 07-09 POSSIBLE DC TO HOME TODAY IF CAN GET LIFE VEST WILL CLEAR IF ZOLL CLEARS HIM TO HAVE THE VEST DW RN AND PATIENT BLOOD SUGARS BETTER TODAY Objective Vitals Vital Signs Date Time Temp Pulse Resp B/P (MAP) Pulse Ox O2 Delivery O2 Flow Rate FiO2 07/09/17 09:01 70 07/09/17 08:30 98.4 66 18 139/80 (99) 95 07/09/17 08:00 62 07/09/17 07:01 64 07/09/17 06:00 65 07/09/17 05:00 65 07/09/17 04:00 65 07/09/17 03:00 57 07/09/17 03:00 97.5 65 18 118/64 (82) 95 07/09/17 02:00 68 07/09/17 01:00 68 07/09/17 00:00 68 07/08/17 23:00 97.6 69 18 144/86 (105) 98 07/08/17 23:00 80 07/08/17 22:00 68 07/08/17 21:00 69 07/08/17 20:00 66 07/08/17 19:24 98.4 73 18 137/78 (97) 95 07/08/17 19:00 69 07/08/17 18:00 66 07/08/17 17:00 69 07/08/17 16:00 70 07/08/17 15:00 72 07/08/17 15:00 98.9 70 20 122/76 (91) 95 07/08/17 14:00 69 07/08/17 13:00 68 07/08/17 12:00 73 07/08/17 11:00 71 07/08/17 11:00 98.4 71 18 124/75 (91) 96 07/08/17 10:00 70 I/O 07/08/17 07/08/17 07/08/17 07/09/17 07/09/17 07/09/17 07:00 15:00 23:00 07:00 15:00 23:00 Intake Total 600 ml 500 ml 525 ml 400 ml Output Total 550 ml 450 ml Balance 50 ml 500 ml 75 ml 400 ml Intake Oral 600 ml 525 ml 400 ml IV Total 500 ml 0 ml Output Urine Total 550 ml 450 ml # Voids 2 # Bowel Movements 1 0 Result Diagram: 07/09/17 0611 07/09/17 0611 Other Results Laboratory Tests Test 07/06/17 13:30 07/06/17 15:37 07/06/17 23:48 07/07/17 06:05 Total Creatine Kinase 87 U/L Troponin I 0.33 NG/ML Activated Partial Thromboplast Time 28.0 SEC 29.2 SEC 30.2 SEC White Blood Count 9.5 TH/MM3 Red Blood Count 4.55 MIL/MM3 Hemoglobin 15.1 GM/DL Hematocrit 44.1 % Mean Corpuscular Volume 96.9 FL Mean Corpuscular Hemoglobin 33.1 PG Mean Corpuscular Hemoglobin Concent 34.1 % Red Cell Distribution Width 12.6 % Platelet Count 277 TH/MM3 Mean Platelet Volume 7.3 FL Neutrophils (%) (Auto) 50.5 % Lymphocytes (%) (Auto) 36.1 % Monocytes (%) (Auto) 8.7 % Eosinophils (%) (Auto) 4.0 % Basophils (%) (Auto) 0.7 % Neutrophils # (Auto) 4.8 TH/MM3 Lymphocytes # (Auto) 3.4 TH/MM3 Monocytes # (Auto) 0.8 TH/MM3 Eosinophils # (Auto) 0.4 TH/MM3 Basophils # (Auto) 0.1 TH/MM3 CBC Comment DIFF FINAL Differential Comment Blood Urea Nitrogen 15 MG/DL Creatinine 0.96 MG/DL Random Glucose 193 MG/DL Calcium Level 8.3 MG/DL Sodium Level 136 MEQ/L Potassium Level 4.0 MEQ/L Chloride Level 102 MEQ/L Carbon Dioxide Level 28.9 MEQ/L Anion Gap 5 MEQ/L Estimat Glomerular Filtration Rate 81 ML/MIN Test 07/07/17 19:07 07/08/17 06:07 07/09/17 06:11 Activated Partial Thromboplast Time 26.6 SEC White Blood Count 9.3 TH/MM3 8.8 TH/MM3 Red Blood Count 4.67 MIL/MM3 4.72 MIL/MM3 Hemoglobin 15.7 GM/DL 15.8 GM/DL Hematocrit 45.0 % 45.2 % Mean Corpuscular Volume 96.2 FL 95.8 FL Mean Corpuscular Hemoglobin 33.5 PG 33.5 PG Mean Corpuscular Hemoglobin Concent 34.8 % 34.9 % Red Cell Distribution Width 12.7 % 12.8 % Platelet Count 276 TH/MM3 280 TH/MM3 Mean Platelet Volume 7.7 FL 7.5 FL Neutrophils (%) (Auto) 55.1 % 47.4 % Lymphocytes (%) (Auto) 31.7 % 39.4 % Monocytes (%) (Auto) 10.2 % 9.1 % Eosinophils (%) (Auto) 2.5 % 3.5 % Basophils (%) (Auto) 0.5 % 0.6 % Neutrophils # (Auto) 5.1 TH/MM3 4.2 TH/MM3 Lymphocytes # (Auto) 3.0 TH/MM3 3.5 TH/MM3 Monocytes # (Auto) 1.0 TH/MM3 0.8 TH/MM3 Eosinophils # (Auto) 0.2 TH/MM3 0.3 TH/MM3 Basophils # (Auto) 0.0 TH/MM3 0.1 TH/MM3 CBC Comment DIFF FINAL DIFF FINAL Differential Comment Blood Urea Nitrogen 13 MG/DL 11 MG/DL Creatinine 0.79 MG/DL 0.96 MG/DL Random Glucose 176 MG/DL 156 MG/DL Total Protein 6.7 GM/DL 6.6 GM/DL Albumin 2.9 GM/DL 3.0 GM/DL Calcium Level 8.4 MG/DL 8.6 MG/DL Phosphorus Level 3.4 MG/DL 3.9 MG/DL Magnesium Level 2.0 MG/DL 2.0 MG/DL Alkaline Phosphatase 85 U/L 88 U/L Aspartate Amino Transf (AST/SGOT) 14 U/L 16 U/L Alanine Aminotransferase (ALT/SGPT) 37 U/L 35 U/L Total Bilirubin 0.4 MG/DL 0.5 MG/DL Sodium Level 135 MEQ/L 138 MEQ/L Potassium Level 3.8 MEQ/L 4.1 MEQ/L Chloride Level 102 MEQ/L 102 MEQ/L Carbon Dioxide Level 23.6 MEQ/L 29.6 MEQ/L Anion Gap 9 MEQ/L 6 MEQ/L Estimat Glomerular Filtration Rate 101 ML/MIN 81 ML/MIN Hemoglobin A1c 8.7 % Free Thyroxine 0.73 NG/DL Thyroid Stimulating Hormone 3rd Gen 3.320 uIU/ML Imaging Last Impressions Chest X-Ray 07/05/17 2353 Signed Impressions: Service Date/Time: Thursday, July 06, 2017 00:10 - CONCLUSION: Mild pulmonary vascular congestion. Surgical clips overlie left chest. Some bony hypertrophy of the right AC joint. Alan Meléndez MD Objective Remarks GENERAL: Awake alert oriented 3 --talkative and cooperative SKIN: Warm and dry. HEAD: Atraumatic. Normocephalic. EYES: Pupils equal and round. No scleral icterus. No injection or drainage. Extraocular muscles intact ENT: No nasal bleeding or discharge. Mucous membranes pink and moist. Tongue is midline NECK: Trachea midline. No JVD. Neck is supple CARDIOVASCULAR: Regular rate and rhythm. S1-S2 no S3-S4 no heave or thrill or rub or gallop RESPIRATORY: No accessory muscle use. Clear to auscultation. Breath sounds equal bilaterally. GASTROINTESTINAL: Abdomen soft, non-tender, nondistended. Hepatic and splenic margins not palpable. Obese MUSCULOSKELETAL: Extremities without clubbing, cyanosis, or edema. No obvious deformities. NEUROLOGICAL: Awake and alert. No obvious cranial nerve deficits. Motor grossly within normal limits. Five out of 5 muscle strength in the arms and legs. Normal speech. PSYCHIATRIC: Appropriate mood and affect; insight and judgment normal. Procedures AI BIRD M.D. DATE: 07/07/2017 PROCEDURE Left heart catheterization, selective coronary angiography, left ventriculography. PROCEDURE NOTE The patient was brought to the cardiac catheterization laboratory in a fasting state after having signed informed consent. The right radial region was prepped and draped as per policy and anesthetized with 1% lidocaine. Arterial access was obtained via the right radial artery and a 6-[place] sheath placed. Coronary arteriography was performed using a [place] catheter. Additional shots of the left system were taken with a Joanne left 3.5. Left ventriculography was done using a standard 6-[place] pigtail. There were no apparent immediate complications. A radial artery compression band was applied to his right wrist at the end of the case to achieve good hemostasis. HEMODYNAMIC DATA Left ventricle 120 with an end-diastolic pressure of 18. Aorta 113/79 with a mean of 95. There was no significant transvalvular aortic gradient on pullback of the pigtail catheter. CORONARY ARTERIOGRAPHY The left main is normal. The left anterior descending is diffusely diseased. There is likely up to 30% stenosis in the distal third of the proximal LAD. The mid-LAD has probably up to 40% stenosis diffusely right after the takeoff of a fairly large branching diagonal. This diagonals more medial branch, which is smaller, has up to 40% proximal stenosis. The mid to distal LAD otherwise has mild diffuse disease up to 20% severity. Left circumflex appears to be totally occluded proximally. There are fair to good right coronary to obtuse marginal collaterals. The right coronary artery is a very large dominant vessel which is diffusely diseased. There is likely up to 30% stenosis in the proximal and midportions and up to 40% stenosis. LEFT VENTRICULOGRAPHY Contrast injection of the left ventricle reveals severe global hypokinesis. Ejection fraction is estimated at 15-20%. CONCLUSION 1. Severe single-vessel coronary artery disease, a totally occluded but collateralized left circumflex. 2. Severely reduced left ventricular systolic function with ejection fraction estimated at 15-20%. NEEDS LIFE VEST AT DC Medications and IVs Current Medications Aspirin (Aspirin Chew) 324 mg ONCE ONCE CHEW Last administered on 07/06/17 00:22; Start 07/06/17 at 00:15; Stop 07/06/17 at 00:17; Status DC Heparin Sodium (Porcine) (Heparin Inj) 4,000 units ONCE ONCE IV Last administered on 07/06/17 01:45; Start 07/06/17 at 01:45; Stop 07/06/17 at 01 :46; Status DC Heparin Sodium/ Dextrose 250 ml @ 10 mls/hr TITRATE PRN IV Coagulation Management Last administered on 07/06/17 02:12; Start 07/06/17 at 01:45; Stop 07/06/17 at 07:52; Status DC Nitroglycerin (Nitroglycerin 2% Oint) 1 inch ONCE ONCE TOPICAL Last administered on 07/06/17 02:32; Start 07/06/17 at 02:00; Stop 07/06/17 at 02 :01; Status DC Furosemide (Lasix Inj) 20 mg ONCE ONCE IV PUSH Last administered on 02:32; Start 07/06/17 at 02:15; Stop 07/06/17 at 02:16; Status DC Sodium Chloride (NS Flush) 2 ml BID IV FLUSH Last administered on 07/09/17 08 :16; Start 07/06/17 at 09:00 Sodium Chloride (NS Flush) 2 ml UNSCH PRN IV FLUSH FLUSH AFTER USING IV ACCESS ; Start 07/06/17 at 02:15 Aspirin (Aspirin) 325 mg DAILY PO Last administered on 07/09/17 08:16; Start 07/07/17 at 09:00 Nitroglycerin (Nitroglycerin 2% Oint) 1 inch Q6HR TOP ; Start 07/06/17 at 08:00 ; Stop 07/07/17 at 15:39; Status DC Acetaminophen (Tylenol) 500 mg Q4H PRN PO HEADACHE; Start 07/06/17 at 02:15 Morphine Sulfate (Morphine Inj) 2 mg Q3HR PRN IV PUSH PAIN SCALE 6 TO 10; Start 07/06/17 at 02:15 Dextrose (D50w (Vial) Inj) 50 ml UNSCH PRN IV PUSH HYPOGLYCEMIA-SEE COMMENTS; Start 07/06/17 at 04:45 Glucagon (Glucagon Inj) 1 mg UNSCH PRN OTHER HYPOGLYCEMIA-SEE COMMENTS; Start 07/06/17 at 04:45 Insulin Aspart (NovoLOG SUPPLEMENTAL SCALE) 1 ACHS SLIDING SCALE SQ Last administered on 07/09/17 08:00; Start 07/06/17 at 08:00 Heparin Sodium/ Dextrose 250 ml @ 10 mls/hr TITRATE PRN IV Coagulation Management Last administered on 07/07/17 03:58; Start 07/06/17 at 08:00 Carvedilol (Coreg) 3.125 mg Q12HR PO Last administered on 07/09/17 08:15; Start 07/06/17 at 21:00 Atorvastatin Calcium (Lipitor) 10 mg HS PO Last administered on 07/08/17 21: 26; Start 07/06/17 at 21:00 Enalapril Maleate (Vasotec) 2.5 mg BID PO Last administered on 07/09/17 08:16 ; Start 07/06/17 at 21:00 Sodium Chloride 1,000 ml @ 100 mls/hr Q10H IV Last administered on 07/07/17 03:00; Start 07/06/17 at 17:00; Stop 07/11/17 at 16:59 Diphenhydramine HCl (Benadryl) 50 mg WHEEL ALIGNMENT TECHNICIAN PO ; Start 07/06/17 at 17:00; Stop 07/10/17 at 16:59 Diazepam (Valium) 10 mg WHEEL ALIGNMENT TECHNICIAN PO ; Start 07/06/17 at 17:00; Stop 07/10/17 at 16:59 Heparin Sodium/ Sodium Chloride 500 ml @ As Directed STK-MED ONCE .ROUTE Last administered on 07/07/17 14:47; Start 07/07/17 at 14:47; Stop 07/07/17 at 14 :48; Status DC Midazolam HCl (Versed Inj) 2 mg STK-MED ONCE .ROUTE Last administered on 15:00; Start 07/07/17 at 14:47; Stop 07/07/17 at 14:48; Status DC Fentanyl Citrate (fentaNYL INJ) 100 mcg STK-MED ONCE .ROUTE ; Start 07/07/17 at 14:47; Stop 07/07/17 at 14:48; Status DC Verapamil HCl (Isoptin Inj) 5 mg STK-MED ONCE .ROUTE Last administered on 07/07 15:08; Start 07/07/17 at 14:47; Stop 07/07/17 at 14:48; Status DC Heparin Sodium (Porcine) (Heparin Inj) 10,000 units STK-MED ONCE .ROUTE Last administered on 07/07/17 15:08; Start 07/07/17 at 14:48; Stop 07/07/17 at 14 :49; Status DC Nitroglycerin 5 ml @ As Directed STK-MED ONCE .ROUTE Last administered on 07/07 15:08; Start 07/07/17 at 14:48; Stop 07/07/17 at 14:49; Status DC Isosorbide Mononitrate (Imdur) 30 mg DAILY@07 PO Last administered on 06:19; Start 07/08/17 at 07:00 Iohexol (OMNIPAQUE 350 INJ (Head Inspector)) 100 ml STK-MED ONCE OTHER ; Start at 16:28; Stop 07/07/17 at 16:29; Status DC Iohexol (OMNIPAQUE 350 INJ (Head Inspector)) 50 ml STK-MED ONCE OTHER ; Start at 16:28; Stop 07/07/17 at 16:29; Status DC Metformin HCl (Glucophage) 500 mg BIDPC PO Last administered on 07/09/17 08: 16; Start 07/08/17 at 18:00 Urinary Catheter: No Vascular Central Line Catheter: No A/P Problem List: (1) Non-ST elevation myocardial infarction (NSTEMI) ICD Code: I21.4 - Non-ST elevation (NSTEMI) myocardial infarction Status: Acute (2) Hypertension ICD Code: I10 - Essential (primary) hypertension Status: Acute (3) Diabetes mellitus ICD Code: E11.9 - Type 2 diabetes mellitus without complications Status: Acute (4) Tobacco use ICD Code: Z72.0 - Tobacco use Status: Acute Assessment and Plan Continue with ACS rule out including serial troponin/EKG Currently on Heparin drip, Nitropaste, beta christiane, statin, aspirin Cardiology consulted for possible evaluation for left heart catheterization later today Currently chest pain-free CAD BUT NOT AMENABLE TO SURGERY NEEDS MEDICAL THERAPY AND LIFE VEST FOR DC EF 15-20% 2. Shortness of breath Likely secondary to NSTEMI Chest x-ray significant for mild pulmonary vascular congestion Status post IV Lasix 1 Supplemental oxygen SMOKING CESSATION RECOMMENDED 3. Diabetes mellitus Not currently on any medication A1c pending Continue with SSI WILL NEED MEDICATIONS AT DC 4. Hypertension Start Coreg twice a day 5. Hyperlipidemia LDL 111 Start Lipitor at bedtime Malignant noncompliance since patient has not seen a physician in many years even though he has insurance AND COULD NOT AFFORD TO TAKE HIS MEDICATIONS OR SEE A PHYSICIAN DC TO HOME TODAY 11-17 IF LIFE VEST IS AVAILABLE Discharge Planning [facility] 2 TO 3 WITH EF OF 15-20 NEEDS LIFEVEST AT DC Problem Qualifiers (1) Hypertension: Qualified Codes: I10 - Essential (primary) hypertension Porter Sewell DO Jul 09, 2017 09:49
[2017-07-09] MEDS ORDERED: ONETTES4 (10:02)
[2017-07-09] MEDS ORDERED: LIPI10TA PO (10:02)
[2017-07-09] MEDS ORDERED: CARV3.125 PO (10:02)
[2017-07-09] MEDS ORDERED: METF500 PO (10:02)
[2017-07-09] MEDS ORDERED: ONETKIT (10:02)
[2017-07-09] MEDS ORDERED: ALCO1PAD (10:02)
[2017-07-09] MEDS ORDERED: LANCETS1 MI1 (10:02)
[2017-07-09] MEDS ORDERED: ASA325 PO (10:02)
[2017-07-09] MEDS ORDERED: ENAL2.5T PO (10:02)
[2017-07-09] MEDS ORDERED: NITR1SUB3 SL (10:02)
[2017-07-09] MEDS ORDERED: ISOS30TA3 PO (10:02)
--- NOTE | 2017-07-09 10:03 | HHI.DS ---
Discharge Summary Admission Date Jul 06, 2017 at 01:53 Discharge Date: Jul 09, 2017 Admitting Diagnosis NSTEMI, htn, diabetes mellitus, tobaccoism. (1) Non-ST elevation myocardial infarction (NSTEMI) ICD Code: I21.4 - Non-ST elevation (NSTEMI) myocardial infarction Diagnosis: Principal Status: Acute (2) Hypertension ICD Code: I10 - Essential (primary) hypertension Diagnosis: Secondary Status: Acute (3) Diabetes mellitus ICD Code: E11.9 - Type 2 diabetes mellitus without complications Diagnosis: Principal Status: Acute (4) Tobacco use ICD Code: Z72.0 - Tobacco use Diagnosis: Principal Status: Acute Procedures AI MARS M.D. DATE: 07/07/2017 PROCEDURE Left heart catheterization, selective coronary angiography, left ventriculography. PROCEDURE NOTE The patient was brought to the cardiac catheterization laboratory in a fasting state after having signed informed consent. The right radial region was prepped and draped as per policy and anesthetized with 1% lidocaine. Arterial access was obtained via the right radial artery and a 6-[place]izen [place] sheath placed. Coronary arteriography was performed using a [place] catheter. Additional shots of the left system were taken with a Joanne left 3.5. Left ventriculography was done using a standard 6-[place]izen [place] pigtail. There were no apparent immediate complications. A radial artery compression band was applied to his right wrist at the end of the case to achieve good hemostasis. HEMODYNAMIC DATA Left ventricle 120 with an end-diastolic pressure of 18. Aorta 113/79 with a mean of 95. There was no significant transvalvular aortic gradient on pullback of the pigtail catheter. CORONARY ARTERIOGRAPHY The left main is normal. The left anterior descending is diffusely diseased. There is likely up to 30% stenosis in the distal third of the proximal LAD. The mid-LAD has probably up to 40% stenosis diffusely right after the takeoff of a fairly large branching diagonal. This diagonals more medial branch, which is smaller, has up to 40% proximal stenosis. The mid to distal LAD otherwise has mild diffuse disease up to 20% severity. Left circumflex appears to be totally occluded proximally. There are fair to good right coronary to obtuse marginal collaterals. The right coronary artery is a very large dominant vessel which is diffusely diseased. There is likely up to 30% stenosis in the proximal and midportions and up to 40% stenosis. LEFT VENTRICULOGRAPHY Contrast injection of the left ventricle reveals severe global hypokinesis. Ejection fraction is estimated at 15-20%. CONCLUSION 1. Severe single-vessel coronary artery disease, a totally occluded but collateralized left circumflex. 2. Severely reduced left ventricular systolic function with ejection fraction estimated at 15-20%. NEEDS LIFE VEST AT NM Brief History - From Admission 57-year-old male with a past medical history significant for hypertension and type 2 diabetes mellitus who presents with increasing shortness of breath and chest tightness 1 day. The patient reports that he was having shortness of breath and chest pressure when he woke up this morning. His shortness of breath was relieved with lying down however when he woke up to take a shower to go to work, the pain and shortness of breath returned. He was previously stented in 2010 in [place], however has not been on any medications in quite some time. He carries a diagnosis of hypertension and diabetes however does not take any medications because he cannot afford these. He last saw PCP approximately 3 years ago. Troponin on admission was 0.39. EKG with no ST segment elevations or depressions. Chest x-ray significant for pulmonary vascular congestion. CBC/BMP: 07/09/17 0611 07/09/17 0611 Significant Findings Laboratory Tests Test 07/06/17 13:30 07/06/17 15:37 07/06/17 23:48 07/07/17 06:05 Troponin I 0.33 NG/ML (0.02-0.05) Monocytes (%) (Auto) 8.7 % (0.0-8.0) Activated Partial Thromboplast Time 30.2 SEC (24.3-30.1) Random Glucose 193 MG/DL (74-106) Calcium Level 8.3 MG/DL (8.5-10.1) Estimat Glomerular Filtration Rate 81 ML/MIN (>89) Test 07/07/17 19:07 07/08/17 06:07 07/09/17 06:11 Monocytes (%) (Auto) 10.2 % (0.0-8.0) 9.1 % (0.0-8.0) Monocytes # (Auto) 1.0 TH/MM3 (0-0.9) Random Glucose 176 MG/DL (74-106) 156 MG/DL (74-106) Albumin 2.9 GM/DL (3.4-5.0) 3.0 GM/DL (3.4-5.0) Calcium Level 8.4 MG/DL (8.5-10.1) Aspartate Amino Transf (AST/SGOT) 14 U/L (15-37) Sodium Level 135 MEQ/L (136-145) Hemoglobin A1c 8.7 % (4.3-6.0) Free Thyroxine 0.73 NG/DL (0.76-1.46) Estimat Glomerular Filtration Rate 81 ML/MIN (>89) Imaging Last Impressions Chest X-Ray 07/05/17 [id number] Signed Impressions: Service Date/Time: Thursday, July 06, 2017 00:10 - CONCLUSION: Mild pulmonary vascular congestion. Surgical clips overlie left chest. Some bony hypertrophy of the right AC joint. Alan Meléndez MD PE at Discharge GENERAL: Awake alert oriented 3 --talkative and cooperative SKIN: Warm and dry. HEAD: Atraumatic. Normocephalic. EYES: Pupils equal and round. No scleral icterus. No injection or drainage. Extraocular muscles intact ENT: No nasal bleeding or discharge. Mucous membranes pink and moist. Tongue is midline NECK: Trachea midline. No JVD. Neck is supple CARDIOVASCULAR: Regular rate and rhythm. S1-S2 no S3-S4 no heave or thrill or rub or gallop RESPIRATORY: No accessory muscle use. Clear to auscultation. Breath sounds equal bilaterally. GASTROINTESTINAL: Abdomen soft, non-tender, nondistended. Hepatic and splenic margins not palpable. Obese MUSCULOSKELETAL: Extremities without clubbing, cyanosis, or edema. No obvious deformities. NEUROLOGICAL: Awake and alert. No obvious cranial nerve deficits. Motor grossly within normal limits. Five out of 5 muscle strength in the arms and legs. Normal speech. PSYCHIATRIC: Appropriate mood and affect; insight and judgment normal. Hospital Course 57-year-old male with a past medical history significant for hypertension and type 2 diabetes mellitus who presents with increasing shortness of breath and chest tightness 1 day. The patient reports that he was having shortness of breath and chest pressure when he woke up this morning. His shortness of breath was relieved with lying down however when he woke up to take a shower to go to work, the pain and shortness of breath returned. He was previously stented in 2010 in [place], however has not been on any medications in quite some time. He carries a diagnosis of hypertension and diabetes however does not take any medications because he cannot afford these. He last saw PCP approximately 3 years ago. Troponin on admission was 0.39. EKG with no ST segment elevations or depressions. Chest x-ray significant for pulmonary vascular congestion. 07/06/17-patient seen and examined and currently he is free of chest pain 07-07 NO CHEST PAIN DW RN AND PT TO HAVE CARDIAC CATH LATER TODAY AM LABS 07-08 CATH SHOWED LOW EF 15-20 WILL NEED LIFE VEST BEFORE DISCHARGE DW ZOLL REP AND PATIENT AND RN NEEDS TO STOP SMOKING WILL NEED FOLLOWUPS AFTER DC WORKS AT Amind DENIES CHEST PAIN OR PALPITATIONS AT THIS TIME 07-09 POSSIBLE DC TO HOME TODAY IF CAN GET LIFE VEST WILL CLEAR IF ZOLL CLEARS HIM TO HAVE THE VEST DW RN AND PATIENT BLOOD SUGARS BETTER TODAY Pt Condition on Discharge: Fair Discharge Disposition: Discharge Home Discharge Time: > 30 minutes Discharge Instructions DIET: Follow Instructions for: Heart Healthy Diet, Diabetic Diet Speech Therapy-Diet Recommends: Regular Activities you can perform: Regular-No Restrictions Follow up Referrals: Cardiology - 2 Weeks with Ai Mars MD PCP Follow-up - 1 Week New Medications: Alcohol Swabs (Alcohol Prep Pads) 70 % Pad BOX .ROUTE DIRECTED for Aseptic process, #1 0 Refills Lancets (Lancets) 1 Mis Mis EA .ROUTE DIRECTED for Blood Sugar Management, #100 0 Refills Nicotine Patch (Nicotine Patch) 14 Mg/24 Hr Patch 14 MG T-DERMAL DAILY for Smoking Cessation, #30 PATCH 0 Refills Nitroglycerin SL (Nitroglycerin SL) 0.4 Mg Subl 0.4 MG SL DIRECTED PRN for CHEST PAIN, #100 TAB.SL 0 Refills ONE TABLET UNDER THE TONGUE NEEDED FOR CHEST PAIN, MAY REPEAT EVERY FIVE MINUTES FOR A TOTAL OF 3 DOSES OR CALL 911 IF NO RELIEF Onetouch Ultra Mini W/Device (Onetouch Ultra Mini W/Device) 1 Kit Kit KIT .ROUTE DIRECTED for Blood Sugar Management, #1 Onetouch Ultra Test Strips (Onetouch Ultra Test Strips) 1 Chelo Chelo STRIP .ROUTE DIRECTED for Blood Sugar Management, #100 0 Refills Aspirin (Px Aspirin) 325 Mg Tab 325 MG PO DAILY for Blood Clot Prevention, #31 TAB 3 Refills Atorvastatin (Lipitor) 10 Mg Tab 10 MG PO HS for Cholesterol Management, #30 TAB Carvedilol (Coreg) 3.125 Mg Tab 3.125 MG PO Q12HR for Blood Pressure Management, #60 TAB 3 Refills Enalapril (Enalapril) 2.5 Mg Tab 2.5 MG PO BID for Blood Pressure Management, #60 TAB Isosorbide Mononitrate ER (Isosorbide Mononitrate ER) 30 Mg Josafat 30 MG PO DAILY@07 for Chest Pain, #30 TAB Metformin (Glucophage) 500 Mg Tab 500 MG PO BIDPC for Blood Sugar Management, #60 TAB Additional Information DC TO HOME TODAY IF GETS LIFEVEST Porter Sewell DO Jul 09, 2017 10:03
[2017-07-09] MEDS ORDERED: NICO14DI T-DERMAL (10:05)
== END 2017-07-09 15:07 | disposition home or self-care (01) | DRG 281 ==
LOC: NEPE 23:27 → NEDA 07-06 01:53 → HCIS 07-06 03:32
PROVIDERS: ADMIT Hospitalist; ATTEND Hospitalist
PROC: B2111ZZ Fluoroscopy of Multiple Coronary Arteries using Low Osmolar Contrast (ICD-10-PCS; 2017-07-07)
PROC: B2151ZZ Fluoroscopy of Left Heart using Low Osmolar Contrast (ICD-10-PCS; 2017-07-07)
PROC: 4A023N7 Measurement of Cardiac Sampling and Pressure, Left Heart, Percutaneous Approach (ICD-10-PCS; principal; 2017-07-07 13:45)
DX: I21.4 Non-ST elevation (NSTEMI) myocardial infarction (principal); I42.0 Dilated cardiomyopathy; I25.82 Chronic total occlusion of coronary artery; I25.110 Atherosclerotic heart disease of native coronary artery with unstable angina pectoris; E11.9 Type 2 diabetes mellitus without complications; F17.210 Nicotine dependence, cigarettes, uncomplicated; E78.2 Mixed hyperlipidemia; I10 Essential (primary) hypertension; I25.2 Old myocardial infarction; Z91.14 Patient's other noncompliance with medication regimen; Z91.19 Patient's noncompliance with other medical treatment and regimen; Z95.5 Presence of coronary angioplasty implant and graft; R09.89 Other specified symptoms and signs involving the circulatory and respiratory systems
CPT/HCPCS: 71010; 80048; 80053; 80061; 82550; 82552; 82948; 83036; 83735; 83880; 84100; 84439; 84443; 84484; 85025; 85027; 85610; 85730; 93005; 93458; 96374; 99152; 99153; C1769; C1893; J1644; J1815; J1940; J2250; J3010; J7030; Q9967

== ENCOUNTER 2017-10-19 11:50 | Day surgery (SDC) | payer BC ==
[2017-10-19] VITALS (8 sets, daily range): BP systolic 131–164; BP diastolic 80–96; PULSE 72–86; RESP 18–20; TEMP 97.9–98.7; O2SAT 96–97
[~2017-10-19] VITALS: Ht 170.2 cm; Wt 126.6 kg
[~2017-10-19 11:50] MED LIST: ALCO1PAD; ASA325 PO; CARV3.125 PO; ENAL2.5T PO; ISOS30TA3 PO; LANCETS1 MI1; LIPI10TA PO; METF500 PO; NICO14DI T-DERMAL; NITR1SUB3 SL; ONETKIT; ONETTES4
[2017-10-19] MEDS ORDERED: IOHEXOL 350 MG/ML 50 ML BTL (for Cath Lab) OTHER ONE (11:51)
[2017-10-19] MEDS ORDERED: DEXAMETHASONE SOD PHOS 4 MG/ML VIAL IV ONE (12:00)
[2017-10-19] MEDS ORDERED: ONDANSETRON HCL 4 MG/2 ML VIAL IV ONE (12:00)
[2017-10-19] MEDS ORDERED: PROPOFOL 200 MG/20 ML AMP IV ONE (12:00)
[2017-10-19] MEDS ORDERED: SODIUM CHLORIDE 0.9% 20 ML VIAL IV ONE (12:00)
[2017-10-19] MEDS ORDERED: PHENYLEPH/NS 1000 MCG/10 ML SYR IV ONE (12:00)
[2017-10-19] MEDS ORDERED: SODIUM CHLORID 0.9% 500 ML IV PRN (12:30)
[2017-10-19] MEDS ORDERED: CHLORHEXIDINE GLUCONATE 2 % 1 PACK (2 CLOTHS) TOPICAL SCH (12:30)
[2017-10-19] MEDS ORDERED: NS 1000 ML IV SCH (12:30)
[2017-10-19] MEDS ORDERED: CHLORHEXIDINE GLUCONATE 2 % 1 PACK (2 CLOTHS) TOPICAL PRN (12:30)
[2017-10-19] MEDS ORDERED: POVIDONE IODINE 5% (ANTISEPSIS KIT) 4 APPLICATIONS EACH NARE SCH (12:30)
[2017-10-19] MEDS ORDERED: LACTATED RINGER'S 1000 ML IV PRN (12:30)
[2017-10-19] MEDS ORDERED: METOPROLOL TARTRATE 25 MG TAB PO PRN (12:30)
[2017-10-19] MEDS ORDERED: INSULIN HUMAN REGULAR 1,000 UNITS/10 ML VIAL SQ PRN (12:30)
[2017-10-19] MEDS ORDERED: POVIDONE IODINE 5% (ANTISEPSIS KIT) 4 APPLICATIONS EACH NARE PRN (12:30)
[2017-10-19] MEDS ORDERED: VANCOMYCIN 1000 MG/NS 250 ML IV SCH ×2 (12:30)
[2017-10-19] MEDS ORDERED: MUPIROCIN 2% OINT 1 APPLIC/GM SYR NASAL SCH (12:30)
[2017-10-19] MEDS ORDERED: ceFAZolin 2 GM PREMIX 50 ML IV SCH (12:30)
[2017-10-19 13:04] LABS: AUTOMATED NEUTROPHIL # 4.7 TH/MM3 (1.8-7.7); BASOPHIL # 0.1 TH/MM3 (0-0.2); BASOPHIL % 0.5 % (0.0-2.0); EOSINOPHIL # 0.2 TH/MM3 (0-0.4); EOSINOPHIL % 2.3 % (0.0-4.0); HEMATOCRIT 46.7 % (39.0-51.0); HEMOGLOBIN 16.4 GM/DL (13.0-17.0); LYMPH % 40.7 % (9.0-44.0); MEAN CELL VOLUME 93.8 FL (80.0-100.0); MEAN CORPUSCULAR HEMOGLOBIN 32.9 PG (27.0-34.0); MEAN CORPUSCULAR HGB CONC 35.1 % (32.0-36.0); MEAN PLATELET VOLUME 7.3 FL (7.0-11.0); MONO % 8.6 % (0.0-8.0); MONOCYTE # 0.9 TH/MM3 (0-0.9); NEUT % 47.9 % (16.0-70.0); PLATELET COUNT 302 TH/MM3 (150-450); RED BLOOD COUNT 4.98 MIL/MM3 (4.50-5.90); RED CELL DISTRIBUTION WIDTH 13.3 % (11.6-17.2); WHITE BLOOD COUNT 9.9 TH/MM3 (4.0-11.0)
[2017-10-19 13:15] LABS: INTERNATIONAL NORMALIZED RATIO 1.1 RATIO; PROTHROMBIN TIME - PATIENT 10.7 SEC (9.8-11.6)
[2017-10-19 13:21] LABS: CALCIUM 8.6 MG/DL (8.5-10.1); CREATININE 0.93 MG/DL (0.60-1.30)
[2017-10-19] MEDS ORDERED: KETAMINE HCL 500 MG/10 ML VIAL ONE (13:37)
[2017-10-19] MEDS ORDERED: LIDOCAINE HCL 2% 50 ML VIAL ONE (13:46)
[2017-10-19] MEDS ORDERED: PROPOFOL 200 MG/20 ML AMP ONE (14:42)
[2017-10-19] MEDS ORDERED: ZOLPIDEM TARTRATE 5 MG TAB PO PRN (15:15)
[2017-10-19] MEDS ORDERED: traMADol HCL 50 MG TAB PO PRN (15:15)
[2017-10-19] MEDS ORDERED: DO NOT ADM ANY ANTICOAGULANT DRUGS PRN (15:21)
[2017-10-19] MEDS ORDERED: MIDAZOLAM HCL 2 MG/2 ML VIAL ONE (15:27)
--- NOTE | 2017-10-19 15:52 | MP ---
cc: Carter Mars MD DATE OF OPERATION: 10/19/2017 PROCEDURE: Single-chamber AICD implantation via left subclavian vein, AICD defibrillation threshold testing. OPERATIVE NOTE: The patient was brought to the operating suite in a fasting state after having signed informed consent. The left upper chest was prepped and draped as per policy and anesthetized with 1% lidocaine. A transverse incision was made inferior to the left clavicle and using blunt dissection a subcutaneous pocket was formed down to the pectoralis fascia. After administration of dye through a left arm peripheral IV central venous access was obtained once via the left subclavian vein and a 9-Norwegian sheath placed. Through this sheath a ventricular active fixation lead was introduced and its tip positioned in the right ventricular apex for good current of injury, stimulation threshold (0.6 volts) and sensitivity (21.3 millivolts) were demonstrated. This lead also has atrial sensing and the P-wave was measured at 10.9 millivolts. This lead was secured into place using 2-0 Silk ties onto the pectoralis fascia. The lead was then connected to the AICD generator which is a Biotronik Intica device. The lead and the generator were placed in the subcutaneous pocket which was partially closed using 3-0 Vicryl interrupted stitches in 3 layers to close the subcutaneous tissue. Testing of the device was then performed. Ventricular fibrillation was induced. The patient was successfully rescued with a 25 joule shock after a charge time of 5 seconds. The pocket was further closed using 4-0 Monocryl running stitch to close the subcuticular tissue. There were no apparent immediate complications. A portable chest x-ray is pending at the time of this dictation. CONCLUSIONS: 1. Status post successful single-chamber (with atrial sensing capability) AICD implantation via the left subclavian vein using a Biotronik Intica AICD generator. 2. Status post AICD defibrillation threshold testing. MD DIRK Osullivan/PAULA/rh , 03:05 PM , 03:23 PM [facility]
--- NOTE | 2017-10-19 16:10 | RADRPT ---
EXAM DATE/TIME: 10/19/2017 15:38 [place] COMPARISON: CHEST SINGLE AP, July 06, 2017, 0:10. INDICATIONS : Shortness of breath. Evaluate for pneumonia. MEDICAL HISTORY : None. SURGICAL HISTORY : Pacemaker. ENCOUNTER: Initial ACUITY: 1 day PAIN SCORE: 0/10 LOCATION: Bilateral chest FINDINGS: 2 AP portable semierect views of the chest were obtained and demonstrate interval placement of a left subclavian transvenous pacer with no pneumothorax. The heart size remains at the upper limits of nor mal with no evidence of pulmonary edema. There are no confluent infiltrates or effusions. Multiple aleman rgical clips and hakeem are again noted projected over the left side of the chest. CONCLUSION: 1. Interval placement of left subclavian transvenous pacer with no pneumothorax. 2. No evidence of pneumonia. Guzman Cortes MD on October 19, 2017 at 16:08 Board Certified Radiologist. This report was verified electronically.
[2017-10-19] MEDS ORDERED: ATORVASTATIN 10 MG TAB PO SCH (21:00)
[2017-10-19] MEDS: ENALAPRIL MALEATE 2.5 MG TAB PO SCH (23:17)
[2017-10-19] MEDS: CARVEDILOL 3.125 MG TAB PO SCH (23:17)
[2017-10-20] VITALS (16 sets, daily range): BP systolic 144–175; BP diastolic 77–100; PULSE 64–84; RESP 18–22; TEMP 97.7–98.5; O2SAT 93–96
[2017-10-20] MEDS ORDERED: VANCOMYCIN INJ 1,000 MG in SODIUM CHLOR 0.9% 250 ML INJ 250 ML IV SCH (03:30)
[2017-10-20] MEDS ORDERED: ISOSORBIDE MONONITRATE 30 MG CR TAB (IMDUR) PO SCH (07:00)
--- NOTE | 2017-10-20 08:16 | PD.CARD.PN ---
Subjective Subjective Remarks Denies dyspnea, angina, dizziness. Minimal to mild incisional soreness. Objective Medications Item Value Date Time Aspirin 325 mg 10/20/17 0900 (Aspirin) DAILY/PO Isosorbide 30 mg 10/20/17 0700 Mononitrate DAILY@07/PO 10/20/17 0642 (Imdur) Atorvastatin 10 mg 10/19/17 2100 Calcium HS/PO 10/19/172316 (Lipitor) Carvedilol 3.125 mg 10/19/17 2100 (Coreg) Q12HR/PO 10/19/172316 Enalapril Maleate 2.5 mg 10/19/172099 (Vasotec) BID/PO 10/19/172316 Current Medications Medications (Trade) Dose Ordered Sig/Shelby Route Start Time Stop Time Status Last Admin Sodium Chloride 1,000 ml @ 30 mls/hr Q24H IV 10/19/17 12:30 Cefazolin Sodium/ Dextrose 50 ml @ 100 mls/hr PROJECT MANAGEMENT IV 10/19/17 12:30 10/22/17 12:29 10/19/17 13:50 (Betadine 5% Antisepsis Kit) 2 applic PROJECT MANAGEMENT EACH NARE 10/19/17 12:30 10/22/17 12:29 10/19/17 12:45 (Bactroban Nasal 2% Oint) 1 applic PROJECT MANAGEMENT NASAL 10/19/17 12:30 10/22/17 12:29 (Chlorhexidine 2% Cloth) 3 pack PROJECT MANAGEMENT TOPICAL 10/19/17 12:30 10/22/17 12:29 10/19/17 12:45 Vancomycin HCl 1000 mg/Sodium Chloride 250 ml @ 250 mls/hr PROJECT MANAGEMENT IV 10/19/17 12:30 10/22/17 12:29 10/19/17 13:55 Lactated Ringer's 1,000 ml @ 30 mls/hr Q24H PRN IV 10/19/17 12:30 10/22/17 12:29 Sodium Chloride 500 ml @ 30 mls/hr [id number] PRN IV 10/19/17 12:30 10/22/17 12:29 (Lopressor) 25 mg PROJECT MANAGEMENT PRN PO 10/19/17 12:30 10/22/17 12:29 (Betadine 5% Antisepsis Kit) 1 applic PROJECT MANAGEMENT PRN EACH NARE 10/19/17 12:30 10/22/17 12:29 (Chlorhexidine 2% Cloth) 3 pack PROJECT MANAGEMENT PRN TOPICAL 10/19/17 12:30 10/22/17 12:29 (NovoLIN R INJ) See Protocol Table ... PROJECT MANAGEMENT PRN SQ 10/19/17 12:30 10/22/17 12:29 (Aspirin) 325 mg DAILY PO 10/20/17 09:00 (Lipitor) 10 mg HS PO 10/19/17 21:00 10/19/17 23:17 (Coreg) 3.125 mg Q12HR PO 10/19/17 21:00 10/19/17 23:17 (Vasotec) 2.5 mg BID PO 10/19/17 21:00 10/19/17 23:17 (Imdur) 30 mg DAILY@07 PO 10/20/17 07:00 10/20/17 06:42 (Ambien) 5 mg HS PRN PO 10/19/17 15:15 (Ultram) 50 mg Q6HR PRN PO 10/19/17 15:15 Miscellaneous Information ALL NURSING DEPARTME... UNSCH PRN .XX 10/19/17 15:21 10/20/17 15:20 Vital Signs / I&O Vital Signs Date Time Temp Pulse Resp B/P (MAP) Pulse Ox O2 Delivery O2 Flow Rate FiO2 10/20/17 07:59 98.5 69 20 155/87 (109) 93 10/20/17 06:00 66 10/20/17 05:00 70 10/20/17 04:00 97.7 76 20 163/100 (121) 95 10/20/17 04:00 68 10/20/17 03:00 84 10/20/17 02:00 68 10/20/17 01:00 70 10/20/17 00:00 71 10/20/17 00:00 98.0 75 22 175/93 (120) 96 10/19/17 23:00 72 10/19/17 22:00 74 10/19/17 21:00 78 10/19/17 20:00 81 10/19/17 20:00 98.7 78 20 149/80 (103) 96 10/19/17 19:00 86 10/19/17 18:00 82 10/19/17 17:00 98.4 72 18 131/85 (100) 96 10/19/17 17:00 73 10/19/17 16:00 97.6 69 17 129/72 (91) 95 Nasal Cannula 2 10/19/17 15:45 73 18 132/64 (86) 95 Nasal Cannula 2 10/19/17 15:30 73 19 140/85 (103) 96 Nasal Cannula 2 10/19/17 15:21 97.6 74 20 148/79 (102) 96 Nasal Cannula 2 10/19/17 12:39 97.9 76 20 164/96 (118) 97 I/O 10/19/17 10/19/17 10/19/17 10/20/17 10/20/17 10/20/17 07:00 15:00 23:00 07:00 15:00 23:00 Intake Total 0 ml 480 ml Output Total 925 ml Balance 0 ml -445 ml Intake Oral 480 ml IV Total 0 ml Output Urine Total 925 ml Physical Exam ICD site clean, dry, intact, no hematoma or tenderness. Laboratory Laboratory Tests Test 10/19/17 12:25 White Blood Count 9.9 TH/MM3 Red Blood Count 4.98 MIL/MM3 Hemoglobin 16.4 GM/DL Hematocrit 46.7 % Mean Corpuscular Volume 93.8 FL Mean Corpuscular Hemoglobin 32.9 PG Mean Corpuscular Hemoglobin Concent 35.1 % Red Cell Distribution Width 13.3 % Platelet Count 302 TH/MM3 Mean Platelet Volume 7.3 FL Neutrophils (%) (Auto) 47.9 % Lymphocytes (%) (Auto) 40.7 % Monocytes (%) (Auto) 8.6 % Eosinophils (%) (Auto) 2.3 % Basophils (%) (Auto) 0.5 % Neutrophils # (Auto) 4.7 TH/MM3 Lymphocytes # (Auto) 4.0 TH/MM3 Monocytes # (Auto) 0.9 TH/MM3 Eosinophils # (Auto) 0.2 TH/MM3 Basophils # (Auto) 0.1 TH/MM3 CBC Comment DIFF FINAL Differential Comment Prothrombin Time 10.7 SEC Prothromb Time International Ratio 1.1 RATIO Activated Partial Thromboplast Time 28.5 SEC Blood Urea Nitrogen 16 MG/DL Creatinine 0.93 MG/DL Random Glucose 183 MG/DL Calcium Level 8.6 MG/DL Sodium Level 137 MEQ/L Potassium Level 3.6 MEQ/L Chloride Level 102 MEQ/L Carbon Dioxide Level 27.0 MEQ/L Anion Gap 8 MEQ/L Estimat Glomerular Filtration Rate 84 ML/MIN Imaging Last 24 hours Impressions Chest X-Ray 10/19/17 1507 Signed Impressions: Service Date/Time: Thursday, October 19, 2017 15:38 - CONCLUSION: 1. Interval placement of left subclavian transvenous pacer with no pneumothorax. 2. No evidence of pneumonia. Guzman Cortes MD Assessment and Plan Problem List: (1) S/P implantation of automatic cardioverter/defibrillator (AICD) ICD Codes: Z95.810 - Presence of automatic (implantable) cardiac defibrillator Status: Acute Plan: Stable overnight. AICD site OK. AICD function appropriate by re- interrogation this morning. Discharge today, same home medications plus Levaquin 500 mg qd for 7 days, one week f/u. (2) CAD (coronary artery disease) ICD Codes: I25.10 - Atherosclerotic heart disease of [place] coronary artery without angina pectoris Status: Chronic Plan: Stable. No recent angina. Continue medical therapy. (3) Dilated cardiomyopathy ICD Codes: I42.0 - Dilated cardiomyopathy Status: Chronic Plan: Stable. Compensated. No CHF. Continue beta christiane, SARA-I. Code Status full code Discussed Condition With patient and Problem Qualifiers (1) CAD (coronary artery disease): Qualified Codes: I25.10 - Atherosclerotic heart disease of [place] coronary artery without angina pectoris Carter Mars MD Oct 20, 2017 08:16
[2017-10-20] MEDS ORDERED: ASPIRIN 325 MG TAB PO SCH (09:00)
[2017-10-20] MEDS: CARVEDILOL 3.125 MG TAB PO SCH (10:30)
[2017-10-20] MEDS: ENALAPRIL MALEATE 2.5 MG TAB PO SCH (10:31)
--- NOTE | 2017-10-20 12:23 | EKG ---
Date Performed: 10/20/2017 Time Performed: 06:23:52 PTAGE: 57 years EKG: Sinus rhythm Prolonged QT interval Possible anteroseptal infarct - age undetermined Lateral T wave changes may be due to myocardial ischemia Abnormal ECG PREVIOUS TRACING : 10/19/2017 12.50 Since the prior tracing, there has been no significant pickens DOCTOR: Armando العراقي Interpretating Date/Time 10/20/2017 12:21:40
--- NOTE | 2017-10-20 12:24 | EKG ---
Date Performed: 10/19/2017 Time Performed: 12:50:52 PTAGE: 57 years EKG: Sinus rhythm . Lateral T wave changes may be due to myocardial ischemia Abnormal ECG PREVIOUS TRACING : 07/06/2017 05.53 Since the prior tracing, there has been no significant pickens DOCTOR: Armando العراقي Interpretating Date/Time 10/20/2017 12:21:48
--- NOTE | 2017-10-27 15:50 | CATHPROC ---
[employer] HIS Report Study Information Study Number Admission Scheduled Start Study Start [id number] Oct 19 2017 11:50AM 10/19/2017 Oct 19 2017 1:30PM [place] Service Cardiac Pacer/ICD Admit Source Facility Department Other [facility] - Manager Insurance Physician and Clinical Staff Initial Carter Whitt Broker Associate Yoni Mark,BRENDAN Other Anesthesia, SAP SECURITY CONSULTANT Recorder Laura Romero ,BSN Recorder Destini Ma,[place] TECH2 Scrub Madonna Gill RT(R) Procedures Performed Procedure Location (Site) Vessel Name Lead Insertion Venogram Subclav. Vein (Lft Subclavian Vein Equipment Time Motor Bus Driver Description Size Mfg Part Number Used/Scraped DEFIBRILLATOR, INTICA 7 VR-T 14:40 BIOTRONIK VVE-VDDR [id number] Used DX 14:30 BIOTRONIK LEAD, PLEXA PRO-MRI DF 65/15 [id number] Used TP-1103 13:32 MEDLINE INDUSTRIES SUTURE, STRIP PLUS 1/2" * Used *[id number] 13:32 MEDLINE PACER ADHESIVE, MASTISOL 2/3CC 2/3CC 0523-48 Used 13:32 MEDLINE PACER GILLETTE, LIMB * 2530 *[id number] Used [id number] 13:32 MEDLINE PACER PACK, PACER CUSTOM * Used *[id number] 13:32 MEDLINE PACER PEN, SKIN DUAL W/ RULER * Used *[id number] 13:55 [employer] MEDICAL PACER SAFE SHEATH, FR8, 13CM FR 8 [id number] Used 14:32 [employer] MEDICAL PACER SAFE SHEATH, LONG, FR8, 25CM FR 8 [id number] Used 13:59 Needle Sponge Count 2 22 Used 13:59 Needle Sponge Count 3 3 Used 13:59 Needle Sponge Count 30 1 Used 14:34 Needle Sponge Count 4 4 Used 14:15 NYCOMED OMNIPAQUE, 300 MG, 50ML 50ML [id number] Used [id number] *[id number] SUTURE, 3-0 VICRYL [SH] ([id number]) SUTURE, 3-0 VICRYL [SH] ([id number]) SUTURE, 4-0 MONOCRYL [PS2] (Y496G) [id number] 13:32 [place] [employer],WARM AIR CCL * Used *[id number] [facility] PAD, ELECTROSURGICAL 13:32 * [id number] *[id number] Used SURGICAL GROUNDING ORANGE 5846-7747 13:32 [employer] JOSELITO. / * Used *45434 Equipment Model, Serial, Lot Number and Expiration Data Description Model Number Serial Number Lot Number Expiration Date DEFIBRILLATOR, INTICA 7 VR-T DX [id number] 01-20-2019 LEAD, PLEXA PRO-MRI DF 65/15 [id number] 07-22-2019 History: Allergies Allergy Reaction No Known Allergies History: Risk Factors Family History of Hypertension Dyslipidemia Previous HI Previous Heart Failure Premature CAD Yes Yes No No No Prior Valve Prior PCI Prior CABG Surgery No No No Cerebrovascular Peripheral Artery Chronic Lung On Dialysis Diabetes Diabetes Therapy Disease Disease Disease No No No No Yes Oral Labs Hgb (g/dl) Hct (%) RBC (MIL/MM3) WBC (l/cumm) Platelets (thousands) 11.60-17.00 35.00-51.00 4.00-5.90 4.00-11.00 150.00-450.00 16.4 46.7 4.9 9.9 302 Glucose (mg/dl) BUN (mg/dl) Creatinine (mg/dl) BUN:Creatinine (1:x) 74.00-106.00 7.00-18.00 0.50-1.30 10.00-20.00 183 16 0.9 17.8 Na (meq/l) K (meq/l) 136.00-145.00 3.50-5.10 137 3.6 INR (PTT:PT) 0.90-1.10 1.1 CPK-MB (ng/ML) 0.50-3.60 Not Drawn Medication Medication Total Dose (Bolus/Oral) Medication Total Dosage/Unit 2% XYLOCAINE 10 mL Medications (Bolus/Oral) Medication Time Given Dosage/Unit Administered By Reason 2% XYLOCAINE 10/19/2017 2:12:37 PM 10 mL Carter Mars 10 mL 2% XYLOCAINE given in lab by Carter Mars in Left chest via Subcutaneous. Ordered by Sampson Mars. Medication (Drip) Medication Time Given Dosage/Unit Concentration/Unit Diluent (ml) Solution ANCEF 10/19/2017 1:50:26 PM 2 g 2 g ANCEF given in lab by Anesthesia SAP SECURITY CONSULTANT in Left Antecubital via Peripheral IV. Ordered by Annette Mars. IV Solutions 10/19/2017 1:52:34 PM 50 mL (IV) NaCl .9 Patient arrived on IV Solutions given by Anesthesia, SAP SECURITY CONSULTANT in Right Forearm via Peripheral IV. Pump/Dr ip Flow using NaCl .9. Ordered by Carter Mars. IV Solutions 10/19/2017 1:52:56 PM 50 mL (IV) NaCl .9 Patient arrived on IV Solutions given by Anesthesia, SAP SECURITY CONSULTANT in Left Antecubital via Peripheral IV. Pump /Drip Flow using NaCl .9. Ordered by Carter Mars. VANCOMYCIN DRIP 10/19/2017 1:55:46 PM 1 g 1 g VANCOMYCIN DRIP given in lab by Anesthesia, SAP SECURITY CONSULTANT in Left Antecubital via Peripheral IV. Ordered b Carter Montgomery. Initial Case Assessment Cardiovascular HR Rhythm NIBP 82 sr 137/84 Edema Present Skin color Skin None Normal Warm Dry Neurological State Oriented to time-place- Alert Moves all extremities person Respiration - General Respiration Rate SpO2 (%) O2 (lpm) (B/min) 16 98 0 Chronological Log Time Study Chronological Log 13:34:40 Patient arrived via Bed. 13:34:45 Patient Name, D.O.B, / Armband Verified By R.N. 13:34:55 Anesthesia at bedside. Assumes care of patient. See anesthesia flowsheet for q5min vitals 13:35:00 Presedation assessment performed by Manager Insurance RN. 13:35:48 Consent signed by the physician and the patient and verified by the Manager Insurance staff. 13:36:10 Skin Breakdown- none per patient 13:36:40 Patient has been NPO for More than 6Hrs. 13:41:54 Patient Warmer Placed on the Table. 13:42:00 Disposable Defibrillator Pads Placed On Patient. 13:42:04 Dahiana Prominences Protected Assessment: Initial Case, HR=82 BPM, Rhythm=sr, RMXH=710/84 mmhg, Edema=None, Color=Normal, S kin = Warm, Dry 13:43:05 Neurological: State=Alert, Ox3, AUGUST Respiration: Resp=16 B/min, SpO2=98 %, O2=0 lpm 13:43:57 Table restraints applied according to hospital policy 13:48:08 Bovie ground pad applied to: right thigh 13:50:26 2 g ANCEF given in lab by Anesthesia, SAP SECURITY CONSULTANT in Left Antecubital via Peripheral IV. Ordered Carter Rodriguez. 13:51:07 Left Upper Chest Prepped Times Two. 13:52:11 A # 20 IV was noted in the Forearm (right). Grade = 0 13:52:26 A # 20 IV was noted in the Antecubital (left). Grade = 0 Patient arrived on IV Solutions given by Anesthesia, SAP SECURITY CONSULTANT in Right Forearm via Peripheral IV. P ump/Drip Flow using 13:52:34 NaCl .9. Ordered by Carter Mars. Patient arrived on IV Solutions given by Anesthesia, SAP SECURITY CONSULTANT in Left Antecubital via Peripheral IV . Pump/Drip Flow using 13:52:56 NaCl .9. Ordered by Carter Mars. 13:53:03 History and physical on the chart or being dictated. 13:55:46 1 g VANCOMYCIN DRIP given in lab by Anesthesia, SAP SECURITY CONSULTANT in Left Antecubital via Peripheral IV. Ordered by Carter Mars. 13:58:53 2% CHLORHEXIDINE GLUCONATE WASH AND NASAL SWIPE DONE PRIOR TO PROCEDURE. First Sponge And Instrument Count Done by Madonna Gill, RT(R). 13:58:58 Hypo's: 4, Sponges: 30, Bovie/scratch: 2 Sutures: 6, Blades: 2, Instruments: 26, Syveck Patches: 0 13:59:54 Reference ECG taken 14:05:12 paged 14:06:18 MD responded 14:10:06 MD arrived. Time Out. Correct patient, procedure, procedure equipment, site and side verified with physicia n present. Time 14:12:22 concurred by MD, individual staff and SAP SECURITY CONSULTANT. Time Out #2 - Consents verified, patient in correct position, all results are labled and displa yed, safety precautions 14:12:23 taken, antibiotics administered. Time out concurred by MD, individual staff and SAP SECURITY CONSULTANT in procedu re 14:12:31 Case Start 14:12:37 10 mL 2% XYLOCAINE given in lab by Carter Mars in Left chest via Subcutaneous. Ordered by Carter Mars. 14:13:25 The Subclav. Vein (Lft was manually injected with 10 cc's of contrast. OMNIPAQUE, 300 MG, 5 0ML 50ML used. 14:15:05 Surgical Incision Made. 14:15:12 A pocket was created at the L Upper Chest. 14:15:38 Two dry sponges put into the surgical pocket. 14:28:55 Vascular access was obtained in the Subclav. Vein (Lft. 14:28:58 A SAFE SHEATH, FR8, 13CM FR 8 was advanced into the Subclav. Vein (Lft using the Percutaneo us technique. 14:29:50 A LEAD, PLEXA PRO-MRI DF 65/15 was inserted and positioned in the RV. 14:30:38 Sponges removed from the surgical pocket. 14:32:20 Lead removed A SAFE SHEATH, LONG, FR8, 25CM FR 8 was exchanged in the Subclav. Vein (Lft. This was necessary in order for 14:32:30 catheter support. 14:33:42 A LEAD, PLEXA PRO-MRI DF 65/15 was inserted and positioned in the RV. 14:35:52 Lead placement verified under fluoroscopy 14:36:13 The RV lead impedance and threshold being tested. 14:36:53 The RV lead was sutured to the fascia. 14:43:26 A DEFIBRILLATOR, INTICA 7 VR-T DX VVE-VDDR was connected and placed in the pocket. Second Sponge And Instrument Count Done by Carter Mars. 14:46:38 Hypo's: 4, Sponges:20, Bovie/scratch: bovie/scratch Sutures: ~SUTURE~, Blades: ~BLADES~, Instruments: ~INSTRU~, Syveck Patches: ~SYVECK PATCH~ 14:52:00 Implant Procedure was performed. 14:52:50 A ICD Implant . (Single) 14:53:38 A one Joul DFT was performed. 14:56:05 The DFT was Success at 25 Joules, 105 Ohms lead impedance and 5 ms charge time. 14:57:42 Case End 14:57:46 Steri-strips and a sterile dressing applied to site. 14:57:50 A sling was placed on the affected arm. 14:58:06 No case complications noted. 14:58:14 Defibrillator and ground pads removed. Skin intact. The Final Sponge And Instrument Count Done by Carter Mars. 15:01:34 Hypo's: 4, Sponges: 20, Bovie/scratch: 2 Sutures: 6, Blades: 2, Instruments: 26, Syveck Patches: 0 End Study - Contrast Media Used In Study Contrast Total Opened (mL) Total Used (mL) Total Wasted (mL) Omnipaque 10 10 0 End Study - Maximum Contrast Load Max Contrast Load (mL) 712.1 End Study - Radiation Exposure Fluoro Time (minutes) 5.1 End Study - Patient Disposition Complications Transferred To Telemetry Bed
== END 2017-10-20 15:00 | disposition home or self-care (01) ==
LOC: HCAT 11:50 → HDIC 11:51 → HCIS 16:15 → HCAT 10-20 15:00
PROVIDERS: ATTEND Internal Medicine Cardiovascular Disease
DX: I42.0 Dilated cardiomyopathy (principal); I50.9 Heart failure, unspecified; I25.10 Atherosclerotic heart disease of native coronary artery without angina pectoris; E11.9 Type 2 diabetes mellitus without complications; E78.5 Hyperlipidemia, unspecified; I10 Essential (primary) hypertension; I25.2 Old myocardial infarction; K21.9 Gastro-esophageal reflux disease without esophagitis; F17.210 Nicotine dependence, cigarettes, uncomplicated; E66.9 Obesity, unspecified; Z68.41 Body mass index [BMI] 40.0-44.9, adult; Z79.82 Long term (current) use of aspirin; Z79.84 Long term (current) use of oral hypoglycemic drugs
CPT/HCPCS: 00530; 33249; 71045; 80048; 85025; 85610; 85730; 93005; 93641; C1722; C1777; J0690; J1100; J2250; J2370; J2405; J3010; J3370; J7050; Q9967